=== PATIENT | female | born 1985 | race Caucasian/White ===

== ENCOUNTER 2017-08-18 11:12 | Emergency (ER) | payer OTHER ==
[2017-08-18 12:39] LABS: #Basophils 0.1 thou/uL (0.0-0.2); #Eosinphils 0.2 thou/uL (0.0-0.7); #Lymphocytes 2.4 thou/uL (1.20-3.40); #Monocytes 0.6 thou/uL (0.11-0.59); #Neutrophils 5.4 thou/uL (1.40-6.50); %Basophils 1.3 % (0.0-1.0); %Eosinophils 1.7 % (0.0-10.0); %Lymphocytes 28.1 % (21.0-51.0); %Monocytes 6.6 % (0.0-10.0); %Neutrophils 62.3 % (42.0-75.0); Hemoglobin 13.5 g/dL (12.0-16.0); Mean Corpuscular HGB CONC 33.8 g/dL (32.0-36.0); Mean Corpuscular Hemoglobin 29.6 pg (27.0-31.0); Mean Corpuscular Volume 87.6 fl (81.0-99.0); Mean Platelet Volume 6.9 fL (7.4-10.4); Platelet Count 312 thou/uL (130-400); RBC Distribution Width 12.2 % (11.5-14.5); Red Blood Cell (RBC) Count 4.57 mill/uL (4.20-5.40); White Blood Cell (WBC) Count 8.7 thou/uL (4.8-10.8)
[2017-08-18 12:59] LABS: ALT (SGPT) 13 U/L (8-55); AST (SGOT) 14 U/L (5-34); Albumin 4.2 g/dL (3.5-5.0); Alkaline Phosphatase 70 U/L (40-150); Anion Gap 11 mmol/L (10-20); BUN (Urea Nitrogen) 9 mg/dL (7.0-18.7); Bilirubin, Total 0.7 mg/dL (0.2-1.2); Calc. Creatinine Clearance 0 mL/min (70-130); Carbon Dioxide 27 mmol/L (22-29); Chloride 104 mmol/L (98-107); Estimated GFR-MDRD Greater than 90; Globulin 3.4 g/dL (2.4-3.5); Glucose 74 mg/dL (70-105); Potassium 3.9 mmol/L (3.5-5.1); Protein, Total 7.6 g/dL (6.0-8.3); Sodium 138 mmol/L (136-145)
[2017-08-18 14:40] LABS: Bilirubin Negative (Negative); Blood, Urine Negative (Negative); Clarity TURBID (Clear); Glucose, Urine (Dipstick) Negative (Negative); Leukocyte Negative (Negative); Nitrite Negative (Negative); Protein, Urine (Dipstick) Negative (Neg-Trace); Specific Gravity, Urine 1.024 (1.002-1.036); Urobilinogen 0.2 mg/dL (0.2-1.0)
[2017-08-18 14:42] LABS: Pregnancy Test - Urine (BHCG) Negative (Negative); Pregu Control Background? CLEAR/WHITE (CLR/WHITE); Pregu Control Bar Appear? YES (CONTROL BAR); Specific Gravity 1.024 (1.002-1.036)
--- NOTE | 2017-08-18 15:09 | CT ---
CT OF BRAIN PERFORMED WITHOUT CONTRAST ENHANCEMENT: History: Head injury. Recent fall. Comparison: 02-13-17 FINDINGS: The ventricular and cisternal system is within normal limits. There are no signs of intracerebral hem orrhage or extraaxial fluid collections. The mastoid air cells and visualized sinuses are clear. IMPRESSION: No acute intracranial abnormalities. POS: [facility]
== END 2017-08-18 16:56 | disposition home or self-care (01) ==
LOC: ERS 11:12
DX: R53.1 Weakness (principal); D64.9 Anemia, unspecified; F32.9 Major depressive disorder, single episode, unspecified; Z79.899 Other long term (current) drug therapy
CPT/HCPCS: 36415; 70450; 80053; 81003; 81025; 85025; 85652; 86140

== ENCOUNTER 2017-10-15 16:00 | Outpatient (CLI) | payer OTHER | END 2017-10-15 16:01 | disposition home or self-care (01) | LOC: SLEEPLAB 16:00 | PROVIDERS: ATTEND Family Medicine | DX: G47.33 Obstructive sleep apnea (adult) (pediatric) (principal); E66.9 Obesity, unspecified; F41.9 Anxiety disorder, unspecified | CPT/HCPCS: 95806 ==

== ENCOUNTER 2019-02-20 11:32 | Emergency (ER) | payer OTHER ==
[2019-02-20 12:49] LABS: #Eosinphils 0.1 thou/uL (0.0-0.7); #Lymphocytes 1.7 thou/uL (1.20-3.40); #Monocytes 0.4 thou/uL (0.11-0.59); #Neutrophils 4.4 thou/uL (1.40-6.50); %Basophils 0.1 % (0.0-1.0); %Eosinophils 0.8 % (0.0-10.0); %Lymphocytes 26.3 % (21.0-51.0); %Neutrophils 66.8 % (42.0-75.0); Hemoglobin 12.5 g/dL (12.0-16.0); Mean Corpuscular Hemoglobin 28.8 pg (27.0-31.0); Mean Corpuscular Volume 84.7 fL (78.0-98.0); Platelet Count 298 thou/uL (130-400); RBC Distribution Width 12.9 % (11.5-14.5); Red Blood Cell (RBC) Count 4.33 mill/uL (4.20-5.40); White Blood Cell (WBC) Count 6.6 thou/uL (4.8-10.8)
[2019-02-20 13:09] LABS: ALT (SGPT) 41 U/L (8-55); AST (SGOT) 30 U/L (5-34); Albumin 4.1 g/dL (3.5-5.0); Alkaline Phosphatase 64 U/L (40-150); Anion Gap 12 mmol/L (10-20); BUN (Urea Nitrogen) 10 mg/dL (7.0-18.7); Bilirubin, Total 0.7 mg/dL (0.2-1.2); Calc. Creatinine Clearance 0 mL/min (70-130); Calcium 9.3 mg/dL (7.8-10.44); Carbon Dioxide 26 mmol/L (22-29); Chloride 104 mmol/L (98-107); Estimated GFR-MDRD 86; Globulin 3.3 g/dL (2.4-3.5); Glucose 79 mg/dL (70-105); Potassium 3.8 mmol/L (3.5-5.1); Protein, Total 7.4 g/dL (6.0-8.3); Sodium 138 mmol/L (136-145)
[2019-02-20 13:12] LABS: BHCG - Serum Negative (NEGATIVE); Pregs Control Background? CLEAR/WHITE (CLR/WHITE); Pregs Control Bar Appear? YES (CONTROL BAR)
[2019-02-20 15:11] LABS: Bacteria/HPF 4+ HPF (None Seen); Bilirubin Negative (Negative); Clarity Turbid (Clear); Glucose, Urine (Dipstick) Normal (Negative); Leukocyte Negative Leu/uL (Negative); Nitrite Negative (Negative); Protein, Urine (Dipstick) 50 mg/dL (Neg-Trace); Urobilinogen Normal mg/dL (Less than 2)
[2019-02-20 15:13] LABS: Blood, Urine Trace (Negative)
[2019-02-20] MEDS ORDERED: Ibuprofen 200 MG TAB ONE (15:48)
== END 2019-02-20 16:15 | disposition home or self-care (01) ==
LOC: ERS 11:32
DX: E86.0 Dehydration (principal); F32.9 Major depressive disorder, single episode, unspecified
CPT/HCPCS: 36415; 36416; 80053; 81003; 81015; 84703; 85025; 96360

== ENCOUNTER 2019-03-02 20:29 | Emergency (ER) | payer OTHER ==
[2019-03-02 20:58] LABS: #Lymphocytes 1.4 thou/uL (1.20-3.40); #Monocytes 0.3 thou/uL (0.11-0.59); #Neutrophils 5.1 thou/uL (1.40-6.50); %Basophils 0.4 % (0.0-1.0); %Eosinophils 0.6 % (0.0-10.0); %Lymphocytes 20.3 % (21.0-51.0); %Monocytes 4.9 % (0.0-10.0); %Neutrophils 73.8 % (42.0-75.0); Hemoglobin 12.5 g/dL (12.0-16.0); Mean Corpuscular HGB CONC 33.1 g/dL (32.0-36.0); Mean Corpuscular Volume 84.4 fL (78.0-98.0); Mean Platelet Volume 6.8 fL (7.4-10.4); Platelet Count 315 thou/uL (130-400); RBC Distribution Width 13.5 % (11.5-14.5); Red Blood Cell (RBC) Count 4.48 mill/uL (4.20-5.40); White Blood Cell (WBC) Count 6.9 thou/uL (4.8-10.8)
--- NOTE | 2019-03-02 21:11 | RAD ---
EXAM: Portable chest PROVIDED CLINICAL HISTORY: Chest pain COMPARISON: None FINDINGS: Cardiac and mediastinal silhouette is within normal limits. No focal consolidation, pleural fluid or pneumothorax evident. IMPRESSION: No evidence for an acute cardiopulmonary process.
[2019-03-02 21:15] LABS: ALT (SGPT) 179 U/L (8-55); AST (SGOT) 250 U/L (5-34); Albumin 4.1 g/dL (3.5-5.0); Alkaline Phosphatase 121 U/L (40-150); Anion Gap 14 mmol/L (10-20); BUN (Urea Nitrogen) 12 mg/dL (7.0-18.7); Bilirubin, Total 0.6 mg/dL (0.2-1.2); CK (CPK) 41 U/L (29-168); Calc. Creatinine Clearance 0 mL/min (70-130); Calcium 9.6 mg/dL (7.8-10.44); Carbon Dioxide 24 mmol/L (22-29); Chloride 105 mmol/L (98-107); Estimated GFR-MDRD Greater than 90; Globulin 3.6 g/dL (2.4-3.5); Glucose 95 mg/dL (70-105); Lipase 62 U/L (8-78); Potassium 3.6 mmol/L (3.5-5.1); Protein, Total 7.7 g/dL (6.0-8.3); Sodium 139 mmol/L (136-145)
[2019-03-02] MEDS ORDERED: Lidocaine Viscous Sol 2% 15 ml UD Cup ONE (21:23)
[2019-03-02] MEDS ORDERED: Mag-Al Plus 1200 MG/1200 MG/120 MG/30 ML UDCUP ONE (21:23)
[2019-03-02] MEDS ORDERED: Metoclopramide HCl 10 MG/2 ML VIAL ONE (21:23)
[2019-03-02] MEDS ORDERED: diphenhydrAMINE 50 MG/ML VIAL ONE (21:23)
== END 2019-03-02 22:50 | disposition home or self-care (01) ==
LOC: SCSER 20:29
DX: K21.9 Gastro-esophageal reflux disease without esophagitis (principal); R07.9 Chest pain, unspecified; R51 Headache; F32.9 Major depressive disorder, single episode, unspecified; Z79.899 Other long term (current) drug therapy
CPT/HCPCS: 71045; 80053; 82550; 83690; 84484; 85025; 93005; 96365; 96375; J1200; J2765

== ENCOUNTER 2019-03-18 12:21 | Outpatient (CLI) | payer OTHER ==
--- NOTE | 2019-03-18 14:35 | RAD ---
XR Barium Swallow Esophagus History: Dysphagia, R 13.10 Comparison: None. Findings: Patient was brought to the fluoroscopy suite. All questions were answered. Patient was initially given gas-forming crystals and then thick liquid barium. Patient tolerated this well. Primary and secondary peristalsis was normal. No extensive mass effect, diverticula, or stricture. Next the patient was giving a 13 mm barium tablet which passed with ease. Patient was then put in the [place] position and given thin liquid barium to continuously drink. Again pr imary and secondary peristalsis was normal. No reflux. No hiatal hernia. Impression: Normal esophagram. Fluoroscopy time: 1 minute
== END 2019-03-18 12:22 | disposition home or self-care (01) ==
LOC: RAD 12:21
PROVIDERS: ATTEND Specialist
DX: R13.10 Dysphagia, unspecified (principal)
CPT/HCPCS: 74220

== ENCOUNTER 2019-06-13 17:45 | Emergency (ER) | payer OTHER ==
[2019-06-13] MEDS ORDERED: Ondansetron ODT 4 MG TAB ONE (18:07)
[2019-06-13] MEDS ORDERED: Mag-Al Plus 1200 MG/1200 MG/120 MG/30 ML UDCUP ONE (18:07)
[2019-06-13] MEDS ORDERED: Lidocaine Viscous Sol 2% 15 ml UD Cup ONE (18:07)
[2019-06-13 18:53] LABS: Bilirubin Small (Negative); Blood, Urine Negative (Negative); Clarity Cloudy (Clear); Glucose, Urine (Dipstick) Negative (Negative); Leukocyte Negative (Negative); Nitrite Negative (Negative); Pregnancy Test - Urine (BHCG) Negative (Negative); Pregu Control Background? CLEAR/WHITE (CLR/WHITE); Pregu Control Bar Appear? YES (CONTROL BAR); Protein, Urine (Dipstick) Negative (Neg-Trace); Specific Gravity 1.025 (1.002-1.036); Urobilinogen 0.2 mg/dL (Less than 2)
== END 2019-06-13 19:27 | disposition home or self-care (01) ==
LOC: SCSER 17:45
DX: R10.13 Epigastric pain (principal); R10.811 Right upper quadrant abdominal tenderness; R10.816 Epigastric abdominal tenderness; D64.9 Anemia, unspecified; F32.9 Major depressive disorder, single episode, unspecified
CPT/HCPCS: 36415; 36416; 80053; 80074; 81003; 81025; 82150; 83690; 85025; 93975; 99284; Q0162

== ENCOUNTER 2019-07-13 06:50 | Emergency (ER) | payer OTHER ==
[2019-07-13 07:14] LABS: #Basophils 0.1 thou/uL (0.0-0.2); #Eosinphils 0.1 thou/uL (0.0-0.7); #Lymphocytes 1.8 thou/uL (1.20-3.40); #Monocytes 0.3 thou/uL (0.11-0.59); #Neutrophils 7.7 thou/uL (1.40-6.50); %Eosinophils 0.7 % (0.0-10.0); %Monocytes 3.3 % (0.0-10.0); %Neutrophils 77.1 % (42.0-75.0); Hemoglobin 13.2 g/dL (12.0-16.0); Mean Corpuscular Hemoglobin 29.2 pg (27.0-31.0); Mean Corpuscular Volume 83.5 fL (78.0-98.0); Mean Platelet Volume 7.4 fL (7.4-10.4); Platelet Count 380 thou/uL (130-400); RBC Distribution Width 12.4 % (11.5-14.5); Red Blood Cell (RBC) Count 4.52 mill/uL (4.20-5.40)
[2019-07-13 07:37] LABS: ALT (SGPT) 47 U/L (8-55); AST (SGOT) 32 U/L (5-34); Alkaline Phosphatase 85 U/L (40-110); Anion Gap 14 mmol/L (10-20); BUN (Urea Nitrogen) 9 mg/dL (7.0-18.7); Bilirubin, Total 0.5 mg/dL (0.2-1.2); Calc. Creatinine Clearance 0 mL/min (70-130); Calcium 9.5 mg/dL (7.8-10.44); Carbon Dioxide 22 mmol/L (22-29); Chloride 104 mmol/L (98-107); Estimated GFR-MDRD 90; Globulin 3.7 g/dL (2.4-3.5); Glucose 83 mg/dL (70-105); Lipase 40 U/L (8-78); Potassium 4.1 mmol/L (3.5-5.1); Protein, Total 7.7 g/dL (6.0-8.3); Sodium 136 mmol/L (136-145)
[2019-07-13 07:45] LABS: Bilirubin Negative (Negative); Blood, Urine Negative (Negative); Clarity Clear (Clear); Glucose, Urine (Dipstick) Normal (Negative); Leukocyte Negative Leu/uL (Negative); Nitrite Negative (Negative); Protein, Urine (Dipstick) 10 mg/dL (Neg-Trace); Urobilinogen Normal mg/dL (Less than 2)
[2019-07-13 07:52] LABS: Pregnancy Test - Urine (BHCG) Negative (Negative); Pregu Control Background? CLEAR/WHITE (CLR/WHITE); Pregu Control Bar Appear? YES (CONTROL BAR); Specific Gravity 1.025 (1.002-1.036)
[2019-07-13] MEDS ORDERED: Ketorolac Tromethamine 30 MG/ML VIAL ONE (08:20)
--- NOTE | 2019-07-13 08:27 | CT ---
CT Abdomen Pelvis W Con: 07/13/2019 7:48 AM CLINICAL INFORMATION: Left lower quadrant abdominal pain and pelvic pain COMPARISON: 09/25/2016 TECHNIQUE: Multiple contiguous axial images were obtained and a CT of the abdomen and pelvis with IV contrast. C oronal and sagittal reformats were performed. FINDINGS: Lower Chest: within normal limits. Abdomen: Liver: within normal limits. Bile Ducts: Normal caliber. Gallbladder: No calcified gallstones. Normal caliber wall. Pancreas: within normal limits. Spleen: within normal limits. Adrenals: within normal limits. Kidneys: within normal limits. Pelvis: Reproductive Organs: A 3.9 cm hypodensity in the right adnexa likely represents a cyst/follicle. Ureters: within normal limits. Bladder: within normal limits. Peritoneum: No ascites or free air, no fluid collection. Bowel: Normal caliber. Normal appendix. Mesentery and Retroperitoneum: No enlarged mesenteric or retroperitoneal lymph nodes. Vessels: Normal. Abdominal Wall: within normal limits. Bones: Within normal limits IMPRESSION: No evidence of acute intraabdominal or pelvic abnormality.
== END 2019-07-13 09:24 | disposition home or self-care (01) ==
LOC: ERS 06:50
DX: N83.201 Unspecified ovarian cyst, right side (principal); F32.9 Major depressive disorder, single episode, unspecified; Z79.899 Other long term (current) drug therapy
CPT/HCPCS: 74177; 80053; 81003; 81025; 83690; 85025; 96374; J1885

== ENCOUNTER 2019-07-22 13:37 | Observation (INO) | payer OTHER ==
[~2019-07-22 13:37] MED LIST: Iopamidol-370 76% 500 ML 1 ML ONE
[2019-07-22] MEDS ORDERED: Morphine 4 MG/ML VIAL ONE ×2 (14:22→16:51)
[2019-07-22] MEDS ORDERED: Ondansetron PF 4 MG/2 ML Vial ONE (14:22)
--- NOTE | 2019-07-22 14:28 | RAD ---
EXAM: Single view of the chest HISTORY: Sepsis COMPARISON: 03/02/2019 FINDINGS: Single view of the chest shows a normal sized cardiomediastinal silhouette. There is no montez dence of consolidation, mass, or pleural effusion. The bones are unremarkable. IMPRESSION: No evidence of acute cardiopulmonary disease
[2019-07-22 14:34] LABS: #Eosinphils 0.1 thou/uL (0.0-0.7); #Lymphocytes 1.7 thou/uL (1.20-3.40); #Monocytes 0.5 thou/uL (0.11-0.59); #Neutrophils 8.7 thou/uL (1.40-6.50); %Basophils 0.3 % (0.0-1.0); %Eosinophils 1.3 % (0.0-10.0); %Lymphocytes 15.6 % (21.0-51.0); %Monocytes 4.3 % (0.0-10.0); %Neutrophils 78.5 % (42.0-75.0); Hemoglobin 12.6 g/dL (12.0-16.0); Mean Corpuscular HGB CONC 33.5 g/dL (32.0-36.0); Mean Corpuscular Hemoglobin 28.2 pg (27.0-31.0); Mean Corpuscular Volume 84.1 fL (78.0-98.0); Mean Platelet Volume 7.1 fL (7.4-10.4); Platelet Count 411 thou/uL (130-400); RBC Distribution Width 12.3 % (11.5-14.5); Red Blood Cell (RBC) Count 4.47 mill/uL (4.20-5.40); White Blood Cell (WBC) Count 11.1 thou/uL (4.8-10.8)
[2019-07-22 14:54] LABS: ALT (SGPT) 17 U/L (8-55); AST (SGOT) 12 U/L (5-34); Alkaline Phosphatase 78 U/L (40-110); Anion Gap 13 mmol/L (10-20); BUN (Urea Nitrogen) 12 mg/dL (7.0-18.7); Bilirubin, Total 0.3 mg/dL (0.2-1.2); Calc. Creatinine Clearance 0 mL/min (70-130); Calcium 9.6 mg/dL (7.8-10.44); Carbon Dioxide 25 mmol/L (22-29); Chloride 104 mmol/L (98-107); Estimated GFR-MDRD 81; Globulin 3.7 g/dL (2.4-3.5); Glucose 110 mg/dL (70-105); Potassium 3.6 mmol/L (3.5-5.1); Protein, Total 7.7 g/dL (6.0-8.3); Sodium 138 mmol/L (136-145)
--- NOTE | 2019-07-22 14:59 | CT ---
CT Abdomen Pelvis W Con: 07/22/2019 2:16 PM CLINICAL INFORMATION: Left lower quadrant abdominal pain that began 2 days ago COMPARISON: 07/13/2019 TECHNIQUE: Multiple contiguous axial images were obtained and a CT of the abdomen and pelvis with IV contrast. C oronal and sagittal reformats were performed. FINDINGS: Lower Chest: within normal limits. Abdomen: Liver: within normal limits. Bile Ducts: Normal caliber. Gallbladder: No calcified gallstones. Normal caliber wall. Pancreas: within normal limits. Spleen: within normal limits. Adrenals: within normal limits. Kidneys: within normal limits. Pelvis: Reproductive Organs: No pelvic masses. The previously seen right ovarian follicle has resolved. Ureters: within normal limits. Bladder: within normal limits. Peritoneum: No ascites or free air, no fluid collection. Bowel: Normal caliber. Mesentery and Retroperitoneum: No enlarged mesenteric or retroperitoneal lymph nodes. Vessels: Normal. Abdominal Wall: within normal limits. Bones: Within normal limits IMPRESSION: No evidence of acute intraabdominal or pelvic abnormality.
[2019-07-22 15:58] LABS: Bilirubin Negative (Negative); Blood, Urine Trace (Negative); Clarity Clear (Clear); Glucose, Urine (Dipstick) Normal (Negative); Leukocyte Negative Leu/uL (Negative); Nitrite Negative (Negative); Protein, Urine (Dipstick) Negative (Neg-Trace); Urobilinogen Normal mg/dL (Less than 2); WBC/HPF 0-3 HPF (0-3)
[2019-07-22 16:01] LABS: Bacteria/HPF 1+ HPF (None Seen)
--- NOTE | 2019-07-22 17:19 | ULT ---
Pelvic sonogram transabdominal and transvaginal imaging HISTORY: Pelvic pain. FINDINGS: Urinary bladder is unremarkable. Uterus measures up to 11.4 cm with a heterogeneous echotex ture. The hyperechoic fibroid seen on recent CT is not well demonstrated on this exam. Endometrium not well delineated. No free fluid. Right ovary is surgically absent. Left ovary not visualized with transabdominal or tra nsvaginal imaging. IMPRESSION: While the uterus is prominent and heterogeneous, well-defined fibroids/masses are not del ineated. No significant abnormalities are demonstrated.
[2019-07-22 17:48] LABS: Lactic Acid 1.2 mmol/L (0.5-2.2)
[2019-07-22] MEDS ORDERED: Lorazepam 2 MG/ML VIAL ONE (18:02)
[2019-07-22] MEDS ORDERED: Piperacillin/Tazobactam 4.5 GM VIAL ONE (18:02)
[2019-07-22] MEDS ORDERED: Ketorolac Tromethamine 30 MG/ML VIAL ONE (18:02)
[2019-07-22] MEDS ORDERED: Sodium Chloride 0.9% 100 ML ONE (18:04)
--- NOTE | 2019-07-22 18:59 | PDOC.FPRHP ---
- History of Present Illness Chief Complaint: abd pain History of Present Illness: 33 y/o F PMHx PCOS, Guillain Elsberry, R ovarian torsion who is POD#5 s/p R oophorectomy and salpingectomy due to ovarian torsion presents with LLQ pain. She reports having diarrhea that started on Thursday and then later that day developed severe abd pain. It is sharp, shooting pain that is worse with any movement. Denies fever, chills, N/V. ED Course: Pt was given morphine, Zofran, 1L NS, Vanc, Zosyn, Toradol, Lorazepam - Allergies/Adverse Reactions Allergies Allergy/AdvReac Type Severity Reaction Status Date / Time codeine Allergy Verified 07/22/19 18:59 hydrocodone Allergy Verified 07/22/19 18:59 - History PMHx: PCOS, Guillain Elsberry, Anxiety, Depression PSHx: R salpingectomy/oophorectomy for ovarian torsion, 2 sections FHx: Grandmother - ovarian cancer, Mother - PCOS Social: Denies tobacco, EtOH, or drug use - Review of Systems General: denies: fever/chills, weight/appetite/sleep changes Eyes: denies: eye pain, vision changes ENT: denies: nasal congestion, rhinorrhea Respiratory: denies: cough, shortness of breath Cardiovascular: denies: chest pain, edema Gastrointestinal: reports: diarrhea, abdominal pain. denies: nausea, vomiting Genitourinary: denies: dysuria, polyuria Skin: denies: rashes, lesions Musculoskeletal: denies: pain, swelling Neurological: denies: numbness, weakness Psychological: reports: anxiety, depression - Vital signs BP: 142/85, MAP: 104, Pulse: 101, Resp: 18, Temp: 98 (Oral), Pain: 5, O2 sat: 98 on (Room Air) - Physical Exam Constitutional: NAD, awake, alert and oriented, well developed HEENT: normocephalic and atraumatic, EOMI, conjunctiva clear, grossly normal vision, grossly normal hearing, MMM Neck: FROM, no LAD Heart: RRR, normal S1/S2, pulses present Lungs: CTAB, no respiratory distress Abdomen: soft, other (TTP worse in LLQ, no guarding or rebound) Skin: good turgor, capillary refill <2 seconds Heme/Lymphatic: no unusual bruising or bleeding, no purpura, other (surgical laparoscopy sites c/d/i with steri strips in place) Psychiatric: other (tearful, anxious affect) FMR H&P: Results - Labs Result Diagrams: 07/22/19 14:15 07/22/19 14:16 Lab results: WBC 11.1 thou/uL (4.8-10.8) H 07/22/19 14:15 Hgb 12.6 g/dL (12.0-16.0) 07/22/19 14:15 Hct 37.6 % (36.0-47.0) 07/22/19 14:15 MCV 84.1 fL (78.0-98.0) 07/22/19 14:15 Plt Count 411 thou/uL (130-400) H 07/22/19 14:15 Neutrophils % 78.5 % (42.0-75.0) H 07/22/19 14:15 Sodium 138 mmol/L (136-145) 07/22/19 14:16 Potassium 3.6 mmol/L (3.5-5.1) 07/22/19 14:16 Chloride 104 mmol/L (98-107) 07/22/19 14:16 Carbon Dioxide 25 mmol/L (22-29) 07/22/19 14:16 BUN 12 mg/dL (7.0-18.7) 07/22/19 14:16 Creatinine 0.82 mg/dL (0.6-1.1) 07/22/19 14:16 Glucose 110 mg/dL (70-105) H 07/22/19 14:16 Lactic Acid 1.2 mmol/L (0.5-2.2) 07/22/19 17:21 Calcium 9.6 mg/dL (7.8-10.44) 07/22/19 14:16 Total Bilirubin 0.3 mg/dL (0.2-1.2) 07/22/19 14:16 AST 12 U/L (5-34) 07/22/19 14:16 ALT 17 U/L (8-55) 07/22/19 14:16 Alkaline Phosphatase 78 U/L (40-110) 07/22/19 14:16 Serum Total Protein 7.7 g/dL (6.0-8.3) 07/22/19 14:16 Albumin 4.0 g/dL (3.5-5.0) 07/22/19 14:16 Urine Ketones Negative mg/dL (Negative) 07/22/19 15:31 Urine Blood Trace (Negative) A 07/22/19 15:31 Urine Nitrite Negative (Negative) 07/22/19 15:31 Ur Leukocyte Esterase Negative Litzy/uL (Negative) 07/22/19 15:31 Urine RBC 7-10 HPF (0-3) A 07/22/19 15:31 Urine WBC 0-3 HPF (0-3) 07/22/19 15:31 Ur Squamous Epith Cells 11-20 HPF (0-3) A 07/22/19 15:31 Urine Bacteria 1+ HPF (None Seen) A 07/22/19 15:31 - Radiology Interpretation CT scan - abdomen Status: report reviewed by me Additional comment: No acute process noted Chest x-ray Status: report reviewed by me Additional comment: No acute cardiopulmonary abnormality US - abdomen Status: report reviewed by me Additional comment: Uterus 11.4cm and heterogenous, ovaries not seen FMR H&P: A/P - Problem List (1) S/P removal of right ovary Current Visit: Yes Status: Acute Code(s): Z90.721 - ACQUIRED ABSENCE OF OVARIES, UNILATERAL Assessment and Plan: Pt POD#5 s/p R oophorectomy and salpingectomy for ovarian torsion -incision c/d/i -No sign of fluid collection, abscess -Pain control with morphine and toradol (2) Abdominal pain Current Visit: Yes Status: Acute Code(s): R10.9 - UNSPECIFIED ABDOMINAL PAIN Qualifiers: Abdominal location: left lower quadrant Qualified Code(s): R10.32 - Left lower quadrant pain Assessment and Plan: Concerning for a post-op infection with mild leukocytosis potentially from uterine manipulation -Will treat with gent and clinda -IVF -Pain control with morphine and toradol (3) Leukocytosis Current Visit: Yes Status: Acute Code(s): D72.829 - ELEVATED WHITE BLOOD CELL COUNT, UNSPECIFIED Assessment and Plan: Will monitor -Abx and fluids as above - Plan Disposition/LOS: Obs on antisqueak applier unit LOS likely less than 48 hours FMR H&P: Upper Level - Plan Date/Time: 07/22/191856 I, [], have evaluated this patient and agree with findings/plan as outlined by editing internship resident. Pertinent changes/additions are listed here. Addendum - Attending - Attending Attestation Date/Time: 07/22/192109 I personally evaluated the patient and discussed the management with Dr. Oro. 33 yo WF now POD#5 from SO for adnexal torsion in [place], seen by Dr. Kramer at [facility] today c/o diffuse abdominal pain. CT and USG are nonfocal, WBC= 11+. Pt has required multiple doses of pain medication in ER and requires OBS. Will tx. for pain and start Gent/Clinda for possible postop pelvic infection. Discussed with Dr. Kramer who agrees with this plan. I agree with the History, Examination, Assessment and Plan documented above.
[2019-07-22] MEDS ORDERED: Ondansetron ODT 4 MG TAB PO PRN (19:42)
[2019-07-22] MEDS ORDERED: Ondansetron PF 4 MG/2 ML Vial IVP PRN (19:42)
[2019-07-22] MEDS: Lactated Ringer's 1,000 ML IV SCH (20:12)
[2019-07-22 20:27] VITALS: BMI 39.1
[2019-07-22] MEDS: Morphine 4 MG/ML VIAL SLOW IVP PRN (21:13)
[2019-07-22] MEDS: GENTAMICIN SULFATE IVPB SCH (21:13)
[2019-07-22] MEDS: ADMIXTURE FEE IVPB SCH (21:13)
[2019-07-22] MEDS: SODIUM CHLORIDE IVPB SCH (21:13)
[2019-07-22] MEDS: Famotidine 20 MG TAB PO SCH (21:14)
[2019-07-22] MEDS: Clindamycin/D5W 900 MG in Premix Bag 1 BAG IVPB SCH (22:35)
[2019-07-23] MEDS: Morphine 4 MG/ML VIAL SLOW IVP PRN ×4 (01:49→17:19)
[2019-07-23 05:55] LABS: Anion Gap 12 mmol/L (10-20); BUN (Urea Nitrogen) 9 mg/dL (7.0-18.7); Calc. Creatinine Clearance 202 mL/min (70-130); Calcium 8.4 mg/dL (7.8-10.44); Carbon Dioxide 24 mmol/L (22-29); Chloride 105 mmol/L (98-107); Estimated GFR-MDRD Greater than 90; Glucose 93 mg/dL (70-105); Potassium 3.7 mmol/L (3.5-5.1); Sodium 137 mmol/L (136-145)
[2019-07-23] MEDS: Clindamycin/D5W 900 MG in Premix Bag 1 BAG IVPB SCH ×3 (05:58→22:23)
[2019-07-23] MEDS: Lactated Ringer's 1,000 ML IV SCH ×3 (06:07→14:05)
--- NOTE | 2019-07-23 06:21 | PDOC.EVN ---
Event Note - Event Note Event Note: Louise/Clinda#1 Feeling some better this AM but continues to ask for MS. VSS AF Abdomen is soft, less tender. Nondistended. Plan: Cont. IV ABX, try to switch to PO pain meds today.
[2019-07-23 06:26] LABS: #Eosinphils 0.2 thou/uL (0.0-0.7); #Lymphocytes 1.9 thou/uL (1.20-3.40); #Monocytes 0.5 thou/uL (0.11-0.59); #Neutrophils 5.2 thou/uL (1.40-6.50); %Basophils 0.6 % (0.0-1.0); %Eosinophils 2.2 % (0.0-10.0); %Lymphocytes 23.8 % (21.0-51.0); %Monocytes 6.6 % (0.0-10.0); %Neutrophils 66.9 % (42.0-75.0); Hemoglobin 10.7 g/dL (12.0-16.0); Mean Corpuscular HGB CONC 33.9 g/dL (32.0-36.0); Mean Corpuscular Hemoglobin 28.7 pg (27.0-31.0); Mean Corpuscular Volume 84.7 fL (78.0-98.0); Platelet Count 287 thou/uL (130-400); RBC Distribution Width 12.2 % (11.5-14.5); Red Blood Cell (RBC) Count 3.74 mill/uL (4.20-5.40); White Blood Cell (WBC) Count 7.8 thou/uL (4.8-10.8)
[2019-07-23] MEDS: Famotidine 20 MG TAB PO SCH ×2 (07:46→21:17)
[2019-07-23] MEDS: Ketorolac Tromethamine 30 MG/ML VIAL IVP PRN ×2 (07:48→13:31)
[2019-07-23] MEDS: Enoxaparin Sodium 40 MG/0.4 ML SYRINGE SC SCH (07:52)
[2019-07-23] MEDS: traMADol HCl 50 MG TAB PO PRN ×2 (08:02→13:33)
[2019-07-23] MEDS: Bupropion 150 MG XL TAB PO SCH (09:07)
[2019-07-23] MEDS: Multivit, Chewable SF 1 TAB PO SCH (09:17)
[2019-07-23] MEDS ORDERED: Acetaminophen 500 MG TAB PO SCH (17:15)
[2019-07-23] MEDS ORDERED: FLUoxetine HCl 20 MG CAP PO SCH (21:00)
[2019-07-23] MEDS: SODIUM CHLORIDE IVPB SCH (21:17)
[2019-07-23] MEDS: Ibuprofen 800 MG TAB PO PRN (21:17)
[2019-07-23] MEDS: ADMIXTURE FEE IVPB SCH (21:17)
[2019-07-23] MEDS: GENTAMICIN SULFATE IVPB SCH (21:17)
[2019-07-24] MEDS: Lactated Ringer's 1,000 ML IV SCH ×2 (00:51→07:48)
[2019-07-24] MEDS: Morphine 4 MG/ML VIAL SLOW IVP PRN (03:13)
[2019-07-24 04:42] LABS: #Eosinphils 0.1 thou/uL (0.0-0.7); #Lymphocytes 1.8 thou/uL (1.20-3.40); #Monocytes 0.4 thou/uL (0.11-0.59); #Neutrophils 3.1 thou/uL (1.40-6.50); %Basophils 0.5 % (0.0-1.0); %Eosinophils 2.7 % (0.0-10.0); %Lymphocytes 32.9 % (21.0-51.0); %Monocytes 7.1 % (0.0-10.0); %Neutrophils 56.8 % (42.0-75.0); Hemoglobin 10.8 g/dL (12.0-16.0); Mean Corpuscular HGB CONC 33.5 g/dL (32.0-36.0); Mean Corpuscular Hemoglobin 28.3 pg (27.0-31.0); Mean Corpuscular Volume 84.5 fL (78.0-98.0); Platelet Count 285 thou/uL (130-400); RBC Distribution Width 12.2 % (11.5-14.5); Red Blood Cell (RBC) Count 3.82 mill/uL (4.20-5.40); White Blood Cell (WBC) Count 5.4 thou/uL (4.8-10.8)
[2019-07-24] MEDS: Ibuprofen 800 MG TAB PO PRN (05:35)
[2019-07-24] MEDS: Clindamycin/D5W 900 MG in Premix Bag 1 BAG IVPB SCH (05:35)
[2019-07-24] MEDS ORDERED: Acetaminophen 500 MG TAB PO PRN (07:06)
[2019-07-24] MEDS ORDERED: traMADol HCl 50 MG TAB PO PRN (07:06)
[2019-07-24] MEDS ORDERED: Bisacodyl 5 MG TAB PO PRN (07:07)
[2019-07-24] MEDS ORDERED: Polyethylene Glycol 3350 17 GM Packet PO SCH (07:07)
--- NOTE | 2019-07-24 07:10 | PDOC.FM ---
- Subjective Subjective: 33 yo reports pain a little better. Pt states still when gets up or moves gets sharp shooting pain in area of lower left abdomen incision. Pt reports area inverts when standing up. Pt denies any fever or chills. Denies any nausea or vomiting. Reports not having BM since Thursday AM. Pt denies any chest pain or SOB. Denies any numbness or tingling. Denies any muscle aches or cramps. Pt states pain stable when laying down. No other acute events overnight. - Objective MAR Reviewed: Yes Vital Signs & Weight: Vital Signs (12 hours) Temp Pulse Resp BP Pulse Ox 07/24/19 04:35 97.8 F 84 18 121/59 L 98 07/24/19 00:00 98.2 F 80 18 114/67 98 07/23/19 19:30 98.1 F 82 18 130/76 96 Weight Weight 103.447 kg I&O: 07/23/19 07/24/19 07/25/19 06:59 06:59 06:59 Intake Total 1227 2172 Balance 1227 2172 Result Diagrams: 07/24/19 04:09 07/23/19 05:22 Radiology Reviewed by me: Yes (No acute abnormalities noted) Phys Exam - Physical Examination Constitutional: NAD HEENT: PERRLA, moist MMs, sclera anicteric, oral pharynx no lesions Neck: no nodes, no JVD, supple Respiratory: no wheezing, no rales, no rhonchi, clear to auscultation bilateral Cardiovascular: RRR, no significant murmur, no rub Gastrointestinal: soft (No CVA tenderness noted), no distention, positive bowel sounds Pt tender to light palpation in area of lower left abdomen inicison No redness, heat, swelling or drainage noted. No underlying mass Musculoskeletal: no edema, pulses present Neurological: non-focal, normal sensation, moves all 4 limbs Lymphatic: no nodes Psychiatric: normal affect, A&O x 3 Skin: no rash, normal turgor, cap refill <2 seconds Dx/Plan (1) Abdominal pain Code(s): R10.9 - UNSPECIFIED ABDOMINAL PAIN Status: Acute Qualifiers: Abdominal location: left lower quadrant Qualified Code(s): R10.32 - Left lower quadrant pain (2) Anxiety Code(s): F41.9 - ANXIETY DISORDER, UNSPECIFIED Status: Acute (3) Depression Code(s): F32.9 - MAJOR DEPRESSIVE DISORDER, SINGLE EPISODE, UNSPECIFIED Status : Acute (4) Post-op pain Code(s): G89.18 - OTHER ACUTE POSTPROCEDURAL PAIN Status: Acute (5) S/P removal of right ovary Code(s): Z90.721 - ACQUIRED ABSENCE OF OVARIES, UNILATERAL Status: Acute - Plan Plan: (1) S/P removal of right ovary Pt POD#6 s/p R oophorectomy and salpingectomy for ovarian torsion -incision c/d/i -No sign of fluid collection, abscess -Pain control with morphine and toradol -VSS. CBC normal (2) Abdominal pain -Possible concern for infection. Has been getting tx with IV gent, clinda. WBC stable last two days. No fevers noted. -Pt pain related with movement. Incision inverts when up. Possibly pain related to stitching. -Pain control with ibuprofen, morphine. Will switch to tramadol today. (3) Constipation -Miralax and dulcolax michelle (4) Leukocytosis (Resolved) -Has trended down. -Likely does not need abx outpt. Continue gent, clinda until D/C - Plan Disposition/LOS: - At this time there is no sign of infection. Pt pain was quentin controlled overnight with mainly PO medication. Required less morphine overnight. At this time suspect pain related to stitching in wound site and likely pinching skin. Discussed with pt. At this time will discharge pt home today with PO medication. Advised to rest as needed and take pain medication as scheduled. No BM since thursday. Passing gas. Will give miralax and dulcolax today prior to D/ C.
[2019-07-24 07:54] VITALS: BP 125/67; TEMP 98
[2019-07-24] MEDS: Multivit, Chewable SF 1 TAB PO SCH (09:36)
[2019-07-24] MEDS: Bupropion 150 MG XL TAB PO SCH (09:36)
[2019-07-24] MEDS: Enoxaparin Sodium 40 MG/0.4 ML SYRINGE SC SCH (09:37)
[2019-07-24] MEDS: Famotidine 20 MG TAB PO SCH (09:37)
== END 2019-07-24 10:49 | disposition home or self-care (01) ==
LOC: ERS 13:37 → 3SE 19:54
PROVIDERS: ADMIT Obstetrics & Gynecology; ATTEND Obstetrics & Gynecology
DX: R10.32 Left lower quadrant pain (principal); G89.18 Other acute postprocedural pain; G61.0 Guillain-Barre syndrome; K59.00 Constipation, unspecified; F41.9 Anxiety disorder, unspecified; F32.9 Major depressive disorder, single episode, unspecified; D72.829 Elevated white blood cell count, unspecified; Z79.899 Other long term (current) drug therapy; Z88.5 Allergy status to narcotic agent; Z90.721 Acquired absence of ovaries, unilateral
CPT/HCPCS: 36415; 71045; 74177; 76856; 80048; 80053; 80170; 81003; 81015; 83605; 85025; 87040; 87086; 93005; 94760; 96361; 96365; 96367; 96372; 96374; 96375; 96376; G0378; J1580; J1650; J1885; J2060; J2270; J2405; J2543; J3370; J3490; Q9967

== ENCOUNTER 2019-09-21 10:16 | Outpatient (CLI) | payer OTHER ==
--- NOTE | 2019-09-21 14:01 | NM ---
HEPATOBILIARY SCAN: HISTORY:Right upper quadrant pain. No gallstones and ultrasound dated 06/13/2019 RADIOPHARMACEUTICAL: 5 mCi Technetium 99m Mebrofenin injected intravenously FINDINGS: There is normal tracer extraction by the liver with normal excretion into the biliary tracts and smal l bowel loops and normal filling of the gallbladder. The calculated gallbladder ejection fraction following an oral fatty meal measures 2%. IMPRESSION:Chronic acalculus cholecystitis/gallbladder dyskinesia
== END 2019-09-21 10:17 | disposition home or self-care (01) ==
LOC: NM 10:16
PROVIDERS: ATTEND Surgery
DX: R10.11 Right upper quadrant pain (principal); R10.13 Epigastric pain
CPT/HCPCS: 78227; A9537

== ENCOUNTER 2019-09-26 19:00 | Outpatient (CLI) | payer OTHER | END 2019-09-26 19:01 | disposition home or self-care (01) | LOC: SLEEPLAB 19:00 | PROVIDERS: ATTEND Family Medicine | DX: G47.33 Obstructive sleep apnea (adult) (pediatric) (principal); R53.83 Other fatigue; K21.9 Gastro-esophageal reflux disease without esophagitis; G31.84 Mild cognitive impairment of uncertain or unknown etiology; E66.9 Obesity, unspecified; R06.83 Snoring; G47.10 Hypersomnia, unspecified; R51 Headache; Z68.39 Body mass index [BMI] 39.0-39.9, adult | CPT/HCPCS: 95806 ==

== ENCOUNTER 2019-09-27 16:52 | Outpatient (CLI) | payer OTHER ==
[2019-09-27 17:34] LABS: #Basophils 0.1 thou/uL (0.0-0.2); #Eosinphils 0.1 thou/uL (0.0-0.7); #Lymphocytes 2.1 thou/uL (1.20-3.40); #Monocytes 0.6 thou/uL (0.11-0.59); #Neutrophils 5.9 thou/uL (1.40-6.50); %Basophils 0.6 % (0.0-1.0); %Eosinophils 1.6 % (0.0-10.0); %Lymphocytes 23.8 % (21.0-51.0); %Monocytes 6.3 % (0.0-10.0); %Neutrophils 67.7 % (42.0-75.0); Hemoglobin 11.8 g/dL (12.0-16.0); Mean Corpuscular HGB CONC 32.6 g/dL (32.0-36.0); Mean Corpuscular Hemoglobin 27.5 pg (27.0-31.0); Mean Corpuscular Volume 84.4 fL (78.0-98.0); Mean Platelet Volume 7.6 fL (7.4-10.4); Platelet Count 394 thou/uL (130-400); RBC Distribution Width 12.5 % (11.5-14.5); Red Blood Cell (RBC) Count 4.27 mill/uL (4.20-5.40); White Blood Cell (WBC) Count 8.7 thou/uL (4.8-10.8)
[2019-09-27 18:00] LABS: BHCG - Serum Negative (NEGATIVE); Pregs Control Background? CLEAR/WHITE (CLR/WHITE); Pregs Control Bar Appear? YES (CONTROL BAR)
[2019-09-27 18:02] LABS: ALT (SGPT) 17 U/L (8-55); AST (SGOT) 14 U/L (5-34); Albumin 4.2 g/dL (3.5-5.0); Alkaline Phosphatase 79 U/L (40-110); Anion Gap 15 mmol/L (10-20); BUN (Urea Nitrogen) 14 mg/dL (7.0-18.7); Bilirubin, Direct 0.2 mg/dL (0.1-0.3); Bilirubin, Total 0.5 mg/dL (0.2-1.2); Calc. Creatinine Clearance 0 mL/min (70-130); Calcium 9.7 mg/dL (7.8-10.44); Carbon Dioxide 22 mmol/L (22-29); Chloride 107 mmol/L (98-107); Estimated GFR-MDRD 76; Glucose 92 mg/dL (70-105); Potassium 3.7 mmol/L (3.5-5.1); Protein, Total 7.4 g/dL (6.0-8.3); Sodium 140 mmol/L (136-145)
== END 2019-09-27 16:53 | disposition home or self-care (01) ==
LOC: LABBT 16:52
PROVIDERS: ATTEND Surgery
DX: Z01.812 Encounter for preprocedural laboratory examination (principal); K82.8 Other specified diseases of gallbladder
CPT/HCPCS: 80048; 80076; 84703; 85025

== ENCOUNTER 2019-09-30 11:08 | Day surgery (SDC) | payer OTHER ==
[2019-09-27 16:57] VITALS: BMI 37.2
[~2019-09-30 11:08] MED LIST changes: +Dexamethasone 20 MG/5 ML VIAL ONE; +EPHEDRINE 25 MG/5 ML SYRINGE ONE; -Iopamidol-370 76% 500 ML 1 ML ONE; +Ketorolac Tromethamine 30 MG/ML VIAL ONE; +Lidocaine 1% PF 5 ML VIAL ONE; +Ondansetron PF 4 MG/2 ML Vial ONE; +PROPOFOL 200 MG/20 ML VIAL ONE; +Succinylcholine Chloride 20 MG/ML 10 ml SYRINGE FS ONE
[2019-09-30] MEDS ORDERED: diphenhydrAMINE 50 MG/ML VIAL ONE (12:11)
[2019-09-30] MEDS ORDERED: Bupivacaine 0.25% HCL 30 ML VIAL ONE (12:59)
[2019-09-30] MEDS ORDERED: Lidocaine 1% w/Epinephrine 1:100K 20 ML VIAL ONE (12:59)
[2019-09-30] MEDS ORDERED: Fentanyl 100 MCG/2 ML VIAL ONE ×4 (13:03→15:34)
[2019-09-30] MEDS ORDERED: Promethazine HCl 25 MG/ML VIAL ONE (14:36)
[2019-09-30] MEDS ORDERED: Midazolam HCl 2 mg/2 ml Vial ONE (14:53)
--- NOTE | 2019-09-30 17:50 | OP ---
DATE OF PROCEDURE: 09/30/2019 PREOPERATIVE DIAGNOSIS: Chronic cholecystitis. POSTOPERATIVE DIAGNOSIS: Chronic cholecystitis. PROCEDURE PERFORMED: Laparoscopic cholecystectomy. ANESTHESIA: General. ESTIMATED BLOOD LOSS: Minimal. COMPLICATIONS: None. SPECIMEN: Gallbladder. FINDINGS: Chronic cholecystitis. PROCEDURE IN DETAIL: The patient was taken to the operating room and laid supine on the operating room table. After general anesthetic was obtained, the abdomen was prepped and draped in a sterile fashion. A curved incision was made below the umbilicus. Cautery was used to dissect down to the umbilical fascia. Umbilical fascia was incised and held up using a Wanda. The abdominal cavity was entered using a Kyra clamp. Holding stitch of Vicryl was placed on each side of the fascia. Milan trocar was placed. High-flow pneumoperitoneum was obtained. An upper midline 5 mm port and 2 right upper quadrant 5 mm ports were placed under direct camera visualization. The gallbladder was retracted from the gallbladder fossa. The peritoneum of the gallbladder was opened anteriorly and posteriorly. The critical view triangle was seen showing only the cystic duct and cystic artery branching from medial to lateral. There were no other branching structures. Two clips were placed proximally on the cystic duct and one laterally. It was cut using laparoscopic scissors. The cystic artery was taken in the same way. Electrocautery was then used to dissect the gallbladder out of the gallbladder fossa. The gallbladder was placed in an Endo catch bag and brought out through the Milan. There was no bleeding or bile in the liver bed. The cystic duct stump and cystic artery stump were intact, without evidence of extravasation or bleeding. All port sites were infiltrated using local anesthesia. All ports were removed under camera visualization. Pneumoperitoneum was let down. The Vicryl was used to close the fascial defect below the umbilicus. All incisions were irrigated and closed using 4-0 Monocryl and Dermabond. The patient was en route to Recovery in stable condition. All instrument counts, needle counts and lap counts were correct. Job ID: [id number]
[2019-09-30] MEDS ORDERED: traMADol HCl 50 MG TAB ONE (18:47)
== END 2019-09-30 19:07 | disposition home or self-care (01) ==
LOC: SDC 11:08
PROVIDERS: ATTEND Surgery
PROC: 0FT44ZZ Resection of Gallbladder, Percutaneous Endoscopic Approach (ICD-10-PCS; principal; 2019-09-30)
DX: K81.1 Chronic cholecystitis (principal); K82.8 Other specified diseases of gallbladder; F32.9 Major depressive disorder, single episode, unspecified; F41.9 Anxiety disorder, unspecified; Z79.899 Other long term (current) drug therapy; Z88.5 Allergy status to narcotic agent
CPT/HCPCS: 88304; J0690; J1100; J1200; J1885; J2001; J2250; J2405; J2550; J2704; J3010; S0020

== ENCOUNTER 2019-10-20 17:30 | Outpatient (CLI) | payer OTHER | END 2019-10-20 17:31 | disposition home or self-care (01) | LOC: SLEEPLAB 17:30 | PROVIDERS: ATTEND Family Medicine | DX: G47.33 Obstructive sleep apnea (adult) (pediatric) (principal); R51 Headache; E66.9 Obesity, unspecified; K21.9 Gastro-esophageal reflux disease without esophagitis; R06.83 Snoring; R53.83 Other fatigue; R09.89 Other specified symptoms and signs involving the circulatory and respiratory systems; G31.84 Mild cognitive impairment of uncertain or unknown etiology | CPT/HCPCS: 95806 ==

== ENCOUNTER 2019-12-16 19:30 | Outpatient (CLI) | payer OTHER | END 2019-12-16 19:31 | disposition home or self-care (01) | LOC: SLEEPLAB 19:30 | PROVIDERS: ATTEND Family Medicine | DX: G47.33 Obstructive sleep apnea (adult) (pediatric) (principal); R53.83 Other fatigue; K21.9 Gastro-esophageal reflux disease without esophagitis; E66.9 Obesity, unspecified; R51 Headache; R06.83 Snoring; G31.84 Mild cognitive impairment of uncertain or unknown etiology; R09.89 Other specified symptoms and signs involving the circulatory and respiratory systems | CPT/HCPCS: 95811 ==

== ENCOUNTER 2020-03-18 12:51 | Emergency (ER) | payer OTHER ==
[2020-03-18 13:35] LABS: #Basophils 0.1 thou/uL (0.0-0.2); #Eosinphils 0.1 thou/uL (0.0-0.7); #Lymphocytes 1.8 thou/uL (1.20-3.40); #Monocytes 0.6 thou/uL (0.11-0.59); #Neutrophils 10.8 thou/uL (1.40-6.50); %Basophils 0.8 % (0.0-1.0); %Lymphocytes 13.3 % (21.0-51.0); %Monocytes 4.5 % (0.0-10.0); %Neutrophils 80.4 % (42.0-75.0); Hemoglobin 11.9 g/dL (12.0-16.0); Mean Corpuscular HGB CONC 34.9 g/dL (32.0-36.0); Mean Corpuscular Volume 82.8 fL (78.0-98.0); Mean Platelet Volume 7.6 fL (7.4-10.4); Platelet Count 334 thou/uL (130-400); RBC Distribution Width 13.9 % (11.5-14.5); Red Blood Cell (RBC) Count 4.11 mill/uL (4.20-5.40); White Blood Cell (WBC) Count 13.4 thou/uL (4.8-10.8)
--- NOTE | 2020-03-18 14:21 | ULT ---
US Pelvic W Doppler History: Twin with vaginal bleeding Comparison: Pelvic ultrasound 2019 Findings: Twin with 2 separate gestational sacs with the appearance of a dichorionic diamni otic . Both fetuses have the same heart rate of 169 bpm. Small subchronic hemorrhage. Adequate vascular flow left ovary. Right ovary not visualized and was previously removed.. Cervix is closed and measures 3.5 cm in length. The average ultrasound age of twin A is 10 week 3 day and of twin B is 10 week 5 day, similar. Impression: Viable twin with small subchorionic hemorrhage adjacent to both gestational sac s. Both fetus measurements are similar.
[2020-03-18 14:59] LABS: Bacteria/HPF 4+ HPF (None Seen); Bilirubin Negative (Negative); Blood, Urine 3+ (Negative); Clarity Turbid (Clear); Glucose, Urine (Dipstick) Normal (Negative); Ketone, Urine 20 mg/dL (Negative); Leukocyte 75 Leu/uL (Negative); Nitrite Negative (Negative); Protein, Urine (Dipstick) 70 mg/dL (Neg-Trace); RBC/HPF Greater than 50 HPF (0-3); Specific Gravity, Urine 1.029 (1.002-1.036); Urobilinogen Normal mg/dL (Less than 2); WBC/HPF 21-50 HPF (0-3); pH, Urine 5.5 (5.0-9.0)
[2020-03-20 20:59] LABS: Chlamydia by PCR Not Detected (NotDetected); GC by PCR Not Detected (NotDetected)
== END 2020-03-18 15:09 | disposition home or self-care (01) ==
LOC: ERS 12:51
DX: O20.0 Threatened abortion (principal); O30.001 Twin pregnancy, unspecified number of placenta and unspecified number of amniotic sacs, first trimester; O99.351 Diseases of the nervous system complicating pregnancy, first trimester; G47.30 Sleep apnea, unspecified; O99.341 Other mental disorders complicating pregnancy, first trimester; F32.9 Major depressive disorder, single episode, unspecified; Z3A.10 10 weeks gestation of pregnancy
CPT/HCPCS: 36415; 76856; 81003; 81015; 84702; 85025; 86900; 86901; 87480; 87491; 87510; 87591; 87660; 93976

== ENCOUNTER 2020-05-24 11:27 | Day surgery (SDC) | payer OTHER ==
[2020-05-24 12:04] VITALS: BP 127/59; TEMP 99.2; BMI 41.0
[2020-05-24] MEDS ORDERED: hydrALAZINE 20 MG/ML VIAL SLOW IVP PRN (12:18)
[2020-05-24 13:31] LABS: #Monocytes 0.2 thou/uL (0.11-0.59); #Neutrophils 9.9 thou/uL (1.40-6.50); %Basophils 0.3 % (0.0-1.0); %Eosinophils 0.1 % (0.0-10.0); %Monocytes 1.9 % (0.0-10.0); %Neutrophils 88.7 % (42.0-75.0); Hemoglobin 10.5 g/dL (12.0-16.0); Mean Corpuscular HGB CONC 33.8 g/dL (32.0-36.0); Mean Corpuscular Hemoglobin 28.1 pg (27.0-31.0); Mean Corpuscular Volume 83.2 fL (78.0-98.0); Mean Platelet Volume 7.8 fL (7.4-10.4); Platelet Count 312 thou/uL (130-400); RBC Distribution Width 13.3 % (11.5-14.5); Red Blood Cell (RBC) Count 3.75 mill/uL (4.20-5.40); White Blood Cell (WBC) Count 11.2 thou/uL (4.8-10.8)
[2020-05-24 13:50] LABS: Anion Gap 13 mmol/L (10-20); BUN (Urea Nitrogen) 8 mg/dL (7.0-18.7); Calc. Creatinine Clearance 206 mL/min (70-130); Carbon Dioxide 22 mmol/L (22-29); Chloride 104 mmol/L (98-107); Estimated GFR-MDRD Greater than 90; Glucose 106 mg/dL (70-105); Potassium 4.3 mmol/L (3.5-5.1); Sodium 135 mmol/L (136-145)
[2020-05-24 13:54] LABS: Bacteria/HPF None Seen HPF (None Seen); Bilirubin Negative (Negative); Blood, Urine 1+ (Negative); Clarity Turbid (Clear); Glucose, Urine (Dipstick) Normal (Negative); Ketone, Urine 40 mg/dL (Negative); Leukocyte Negative Leu/uL (Negative); Nitrite Negative (Negative); Protein, Urine (Dipstick) 10 mg/dL (Neg-Trace); Specific Gravity, Urine 1.017 (1.002-1.036); Squamous Epithelial 0-3 HPF (0-3); Urobilinogen Normal mg/dL (Less than 2); WBC/HPF 0-3 HPF (0-3)
[2020-05-24 14:03] LABS: Urine Culture Reflex No No
--- NOTE | 2020-05-24 15:08 | ULT ---
Limited Obstetrical Ultrasound INDICATION: Evaluate left ovary for signs of ovarian torsion. History of right oophorectomy in er 2018 for complications related to cysts. Patient is experiencing left lower quadrant abdominal pain.. TECHNIQUE: Grayscale, M-mode Doppler, color Doppler and spectral Doppler images were obtained. Rafael mckinney is focused on the clinical indication. COMPARISON: Prior obstetrical ultrasound dated March 31, 2020 FINDINGS: GESTATION: Number of gestations: Twin. Presentation: Twin A is in vertex presentation. Twin B is in variable position.. heart rate: Cardiac activity of twin A is 158 bpm. Twin B is 140 bpm . Placental location: Twin B placenta is anterior. Twin A placenta is posterior. Previa: No evidence for previa. Cervical length: Not well demonstrated NORRIS: Not recorded. LIMITED SURVEY: No abnormality as visualized. The left ovary measured 3.4 x 3.3 x 2.8 cm. There is normal Doppler flow to the left ovary. No right adnexa is identified. IMPRESSION: 1. Live twin intrauterine gestations. 2. No sonographic evidence to suggest left ovarian torsion.
--- NOTE | 2020-05-25 05:14 | PRG ---
DATE OF SERVICE: 05/24/2020 TIME OF SERVICE: 16:20. PRESENTING COMPLAINT: Left lower quadrant pain at 19 weeks' gestation with twins. HISTORY OF PRESENT ILLNESS: Ms. Winter is a 34-year-old, 3, para 2, previous x2, with twins, who sees Dr. Collins. She was seen in the office today complaining of left lower quadrant pain. She was evaluated by Dr. Collins and found to have unremarkable exam. However, the patient decided to present to the emergency room. She is complaining of left lower quadrant pain. Ultrasound revealed no cervical funneling in the office. GEOPHYSICAL LABORATORY DIRECTOR HISTORY: As noted. O positive, antibody negative. Pap negative. Rubella immune. VDRL nonreactive. Hepatitis B, GC, chlamydia negative. PAST MEDICAL HISTORY: Significant for depressive disorder, Guillain-Macon syndrome, obesity, and PCOS. SURGICAL HISTORY: Significant for right salpingo-oophorectomy, delivery, and cholecystectomy. ALLERGIES: CODEINE AND HYDROCODONE. MEDICATIONS: Include; 1. Baby aspirin. 2. Bupropion. 3. Butalbital. 4. Cyclobenzaprine. 5. Fluoxetine. 6. Folic acid. 7. vitamins. 8. Macrobid. 9. Metoclopramide. PHYSICAL EXAMINATION: GENERAL: White female, crying upon presentation, pain suddenly relieved itself approximately 1 hour after presentation. VITAL SIGNS: Temperature 98.2, pulse 85, respirations 18, blood pressure 118/72. HEENT: Within normal limits. LUNGS: Clear to auscultation bilaterally. HEART: Regular rate and rhythm. ABDOMEN: Soft and nontender. There is no CVA tenderness. No palpable contractions. FHTs 150s x2. PELVIC: Vulva, without lesions. Vagina, without discharge. Cervical exam deferred. EXTREMITIES: No clubbing, cyanosis, or edema. LABORATORY DATA: Revealed normal CBC, normal base met. The patient's cath UA reveals 11 to 20 rbc's with crystals, 40 ketones and otherwise completely clear. Ultrasound reveals a 2 cm ovary on the left with no torsion and a long cervix consistent with the patient's stated ALIRIO. IMPRESSION: Left lower quadrant pain, resolved; probable small kidney stone, passed at 19 weeks' gestation. PLAN: Reassurance. P.o. hydration. Keep scheduled followup with Dr. Collins. ER precautions. Job ID: [id number]
== END 2020-05-24 16:36 | disposition home health service (06) ==
LOC: L&D/OP 11:27
PROVIDERS: ATTEND Obstetrics & Gynecology
DX: O99.891 Other specified diseases and conditions complicating pregnancy (principal); R10.32 Left lower quadrant pain; O30.002 Twin pregnancy, unspecified number of placenta and unspecified number of amniotic sacs, second trimester; O99.342 Other mental disorders complicating pregnancy, second trimester; F32.9 Major depressive disorder, single episode, unspecified; O99.212 Obesity complicating pregnancy, second trimester; E66.9 Obesity, unspecified; Z3A.19 19 weeks gestation of pregnancy; Z88.5 Allergy status to narcotic agent; Z79.82 Long term (current) use of aspirin; Z79.899 Other long term (current) drug therapy
CPT/HCPCS: 36415; 76815; 80048; 81001; 85025

== ENCOUNTER 2020-07-04 10:05 | Emergency (ER) | payer OTHER ==
[~2020-07-04 10:05] MED LIST changes: -Dexamethasone 20 MG/5 ML VIAL ONE; -EPHEDRINE 25 MG/5 ML SYRINGE ONE; +Iopamidol-370 76% 500 ML 1 ML ONE; -Ketorolac Tromethamine 30 MG/ML VIAL ONE; -Lidocaine 1% PF 5 ML VIAL ONE; -Ondansetron PF 4 MG/2 ML Vial ONE; -PROPOFOL 200 MG/20 ML VIAL ONE; -Succinylcholine Chloride 20 MG/ML 10 ml SYRINGE FS ONE
[2020-07-04] MEDS ORDERED: Acetaminophen 500 MG TAB ONE (10:57)
[2020-07-04] MEDS ORDERED: Metoclopramide HCl 10 MG/2 ML VIAL ONE (10:58)
[2020-07-04] MEDS ORDERED: diphenhydrAMINE 50 MG/ML VIAL ONE (10:58)
--- NOTE | 2020-07-04 11:14 | RAD ---
Chest AP view INDICATION: Chest pain COMPARISON: July 22, 2019 FINDINGS: Lungs: Low lung volumes. Cardiac silhouette: Heart size is accentuated by the exam technique. Pulmonary vasculature: Normal Pleural spaces: No pleural effusion or pneumothorax is demonstrated. Upper abdomen: No abnormality seen. Osseous structures: No acute osseous abnormality. Additional findings: None. IMPRESSION: Low lung volumes. No definite acute cardiac pulmonary abnormality.
[2020-07-04 11:16] LABS: #Eosinphils 0.1 thou/uL (0.0-0.7); #Lymphocytes 1.9 thou/uL (1.20-3.40); #Monocytes 0.6 thou/uL (0.11-0.59); %Eosinophils 0.8 % (0.0-10.0); %Lymphocytes 16.4 % (21.0-51.0); %Monocytes 5.5 % (0.0-10.0); %Neutrophils 77.4 % (42.0-75.0); Hemoglobin 9.8 g/dL (12.0-16.0); Mean Corpuscular HGB CONC 34.4 g/dL (32.0-36.0); Mean Corpuscular Hemoglobin 27.3 pg (27.0-31.0); Mean Corpuscular Volume 79.4 fL (78.0-98.0); Mean Platelet Volume 7.3 fL (7.4-10.4); Platelet Count 340 thou/uL (130-400); RBC Distribution Width 13.4 % (11.5-14.5); Red Blood Cell (RBC) Count 3.59 mill/uL (4.20-5.40); White Blood Cell (WBC) Count 11.6 thou/uL (4.8-10.8)
[2020-07-04 11:36] LABS: ALT (SGPT) 15 U/L (8-55); AST (SGOT) 11 U/L (5-34); Albumin 3.4 g/dL (3.5-5.0); Alkaline Phosphatase 96 U/L (40-110); Anion Gap 13 mmol/L (10-20); BUN (Urea Nitrogen) 6 mg/dL (7.0-18.7); Bilirubin, Total 0.3 mg/dL (0.2-1.2); Calc. Creatinine Clearance 0 mL/min (70-130); Carbon Dioxide 23 mmol/L (22-29); Chloride 104 mmol/L (98-107); Estimated GFR-MDRD Greater than 90; Globulin 3.3 g/dL (2.4-3.5); Glucose 101 mg/dL (70-105); Protein, Total 6.7 g/dL (6.0-8.3); Sodium 136 mmol/L (136-145)
--- NOTE | 2020-07-04 13:43 | CT ---
CT Brain WO Con: 07/04/2020 1:15 PM CLINICAL HISTORY: 34-year-old female with headache. IMAGING TECHNIQUE: Multiple CT images were obtained of the brain without IV contrast. COMPARISON: Prior exam dated August 18, [address] of the brain FINDINGS: BRAIN: Evidence of acute infarct: None. Evidence of chronic ischemic change:None. Evidence of intracranial hemorrhage: None. Evidence of brain volume loss:None. Evidence of midline shift: Third ventricle and septum pellucidum are midline. Ventricles: Normal. No hydrocephalus. SKULL: Intact. VISUALIZED PARANASAL SINUSES: Clear. MASTOID AIR CELLS: Clear. EXTRACRANIAL SOFT TISSUES: Normal. IMPRESSION: No acute intracranial abnormality.
--- NOTE | 2020-07-04 14:01 | CT ---
CT ANGIOGRAM CHEST WITH 3D RENDERING: HISTORY: Chest pain, the patient is approximately 24 weeks present with twins. FINDINGS: There is some motion artifact which somewhat lowers the sensitivity of the study, particularly in reg artemio to the smaller mid and peripheral pulmonary artery branches. There is no convincing CT evidence for acute pulmonary embolism. No mediastinal mass or adenopathy. No evidence for pleural effusion o r pericardial effusion. Inspiration is poor with some vascular crowding. Liver is borderline in siz e. Status post cholecystectomy. IMPRESSION: No convincing CT evidence for acute pulmonary embolism. Less than optimal inspiration. Borderline size liver. Partially visualized fetus on the lowest-most scan slice images. POS: [facility]
--- NOTE | 2020-07-07 17:11 | EKG ---
Test Reason : Blood Pressure : / mmHG Vent. Rate : 102 BPM Atrial Rate : 102 BPM P-R Int : 114 ms QRS Dur : 082 ms QT Int : 328 ms P-R-T Axes : 036 006 010 degrees QTc Int : 427 ms Sinus tachycardia Nonspecific ST abnormality Abnormal ECG Confirmed by RADHA HERRERA DO ([id number]), newspaper editor managing RANDAL BECERRA ([id number]) on 07/07/2020 5:10:29 PM Referred By: Confirmed By:RADHA HERRERA DO
== END 2020-07-04 14:47 | disposition home or self-care (01) ==
LOC: ERS 10:05
DX: R07.9 Chest pain, unspecified (principal); R55 Syncope and collapse; R06.00 Dyspnea, unspecified; D64.9 Anemia, unspecified; G47.30 Sleep apnea, unspecified; F41.9 Anxiety disorder, unspecified; F32.9 Major depressive disorder, single episode, unspecified; Z79.899 Other long term (current) drug therapy
CPT/HCPCS: 36415; 70450; 71045; 71275; 80053; 84484; 85025; 85379; 93005; 96365; 96368; J1200; J2765; Q9967

== ENCOUNTER 2020-07-29 17:23 | Inpatient (IN) | payer OTHER ==
[2020-07-29] MEDS ORDERED: NIFEdipine 10 MG CAP PO SCH (18:30)
[2020-07-29] MEDS: Lactated Ringer's 1,000 ML IV SCH ×2 (18:45→19:23)
[2020-07-29 18:48] LABS: Amnisure Test RUPTURE DETECTED (No Rupture)
[2020-07-29 18:49] LABS: Amnisure Internal Control QC ACCEPTABLE (ACCEPTABLE)
[2020-07-29 18:51] VITALS: BP 131/85; TEMP 98.7; BMI 40.3
[2020-07-29] MEDS ORDERED: Promethazine HCl 25 MG/ML VIAL IM PRN (20:25)
[2020-07-29] MEDS ORDERED: Butorphanol Tartrate 1 MG/ML VIAL SLOW IVP PRN (20:25)
[2020-07-29] MEDS ORDERED: hydrALAZINE 20 MG/ML VIAL SLOW IVP PRN (20:25)
[2020-07-29] MEDS ORDERED: Bicitra 30 ML UDCUP PO PRN (20:25)
[2020-07-29] MEDS ORDERED: Famotidine/PF 20 mg/2ml Vial SLOW IVP PRN (20:25)
[2020-07-29] MEDS ORDERED: CEFAZOLIN 2 GM in Premix Bag 1 BAG IVPB SCH (20:30)
[2020-07-29] MEDS ORDERED: Azithromycin 500 MG in Sodium Chloride 0.9% 250 ML 250 ML IVPB SCH (20:30)
[2020-07-29] MEDS ORDERED: Lactated Ringer's 1,000 ML IV SCH (20:30)
--- NOTE | 2020-07-29 20:58 | PDOC.LDHP ---
Labor and Delivery H&P Chief complaint: contractions, loss of fluid HPI: Patient pf Dr Collins patient evaluated by Dr juarez while I was attending to another patient in the OR CC: Possible LOF EGA: 28 weeks 6 days 34 yo with poss LOF. Dr Juarez performed initial eval. This is my medicare contact specialist H&P as I saw her after he did. I evaluated her at 2057. She states 2 prior CS Bedside sono in use. Known twins. Dating criteria: last menstrual period Grav: 3 Para: 2 OB History Details: CS x 2 Current complications: gestational diabetes Current medications: pre- vitamins, other (Levemir 10U AM and 16 in PM) Allergies/Adverse Reactions: Allergies Allergy/AdvReac Type Severity Reaction Status Date / Time codeine Allergy Verified 11/05/19 18:17 hydrocodone Allergy Verified 11/05/19 18:17 - Physical Exam Vital signs reviewed and normal: yes FHT: category 1 (for age) - Assessment Prelabor ROM, GDM on insulin, twins. 28 weeks 6 days. - Plan Plan: admit to L&D, magnesium for neuroprotection, other (ABX for latency; mag for neuroprotection; sono for EFWs (being done now). Follow sugars conservatively. First eval by Dr Juarez. I have sen the patient at bedside.)
[2020-07-29] MEDS ORDERED: Azithromycin 1,000 MG in Sodium Chloride 0.9% 500 ML IVPB SCH (21:00)
[2020-07-29] MEDS: Betamet Acet/Betamet Na Ph 30 MG/5 ML VIAL IM SCH (21:04)
[2020-07-29 21:05] LABS: Hemoglobin 10.4 g/dL (12.0-16.0); Mean Corpuscular HGB CONC 33.3 g/dL (32.0-36.0); Mean Corpuscular Hemoglobin 25.5 pg (27.0-31.0); Mean Corpuscular Volume 76.7 fL (78.0-98.0); Mean Platelet Volume 8.5 fL (7.4-10.4); Platelet Count 339 thou/uL (130-400); RBC Distribution Width 15.1 % (11.5-14.5); Red Blood Cell (RBC) Count 4.07 mill/uL (4.20-5.40); White Blood Cell (WBC) Count 9.6 thou/uL (4.8-10.8)
[2020-07-29 21:19] LABS: Hemoglobin A1c 5.2 % (4.0-6.0)
--- NOTE | 2020-07-29 21:30 | ULT ---
Obstetric sonogram multi gestation limited HISTORY: Spontaneous rupture of membranes. Gestational diabetes. FINDINGS: Intrauterine gestation. Diamniotic dichorionic sacs. Fetus A is in cephalic presentation and on the maternal right. Heart motion at [address] nta is fundal. Amniotic fluid index 27.5. Measurements: Biparietal diameter 32 weeks 1 day Head circumference 32 weeks 4 days Abdominal circumference 31 weeks 4 days Femur length 30 weeks 0 days [place] 99 percentile. Estimated weight 3 lbs. 13 oz. (1729 g) Fetus B is transverse with the head to the maternal right. Heart motion 150 bpm. Grade 0 placenta is anterior. Amniotic fluid index 27.3. Measurements: Biparietal diameter 32 weeks 6 days Head circumference 33 weeks 0 days Abdominal circumference 29 weeks 6 days Femur length 30 weeks 4 days [place] 93 percentile. Estimated weight 3 lbs. 9 oz. (1614 g) IMPRESSION : Twin intrauterine gestation. Each twin large for reported gestational age. Polyhydramnios.
[2020-07-29] MEDS ORDERED: Calcium Gluc 4.6 MEQ/10 ML (100 MG/ML) SLOW IVP PRN (21:38)
[2020-07-29 21:45] LABS: Syphilis Antibody Nonreactive (Nonreactive); Syphilis Antibody Index 0.08 S/CO (<1.00 Non-Reactive)
[2020-07-29] MEDS ORDERED: Magnesium Sulfate 20 GM/WATER 500 ML BAG IVPB SCH (21:45)
[2020-07-29] MEDS: Ondansetron PF 4 MG/2 ML Vial IVP PRN (21:53)
[2020-07-29 21:59] LABS: Anion Gap 18 mmol/L (10-20); BUN (Urea Nitrogen) 12 mg/dL (7.0-18.7); Calc. Creatinine Clearance 219 mL/min (70-130); Carbon Dioxide 18 mmol/L (22-29); Chloride 105 mmol/L (98-107); Glucose 62 mg/dL (70-105); Potassium 4.2 mmol/L (3.5-5.1); Sodium 137 mmol/L (136-145)
[2020-07-29] MEDS: Magnesium Sulfate 20 gm/500 ml 20 GM/500 ML BAG IVPB SCH (22:23)
[2020-07-29 22:31] LABS: HBSAg Index 0.19 S/CO (0-0.99); HIV (1/2) Antibody/Antigen Non-Reactive (NonReactive); HIV 1/2 INDEX 0.17 S/CO (<1.00); Hep B Surf Ag Non-Reactive S/CO (NonReactive)
[2020-07-30] MEDS: Ampicillin 2 GM in Sodium Chloride 0.9% 100 ML IVPB SCH ×4 (00:43→19:50)
[2020-07-30] MEDS: Lactated Ringer's 1,000 ML IV SCH ×3 (00:51→19:49)
[2020-07-30 02:12] LABS: SARS-CoV-2 MS2 Positive; SARS-CoV-2 N Gene Negative; SARS-CoV-2 S Gene Negative; SARS-CoV-2 by NAA Not Detected (NotDetected); SARS-CoV-2 orf1ab Negative
[2020-07-30] MEDS: Magnesium Sulfate 20 gm/500 ml 20 GM/500 ML BAG IVPB SCH ×2 (06:34→16:00)
[2020-07-30] MEDS ORDERED: Insulin Regular 300 UNITS/3 ML VIAL SC PRN (08:09)
[2020-07-30] MEDS ORDERED: Dextrose 5% in Water 1,000 ML IV PRN (08:09)
[2020-07-30] MEDS ORDERED: Dextrose 50% Abboject 50 ML SYRINGE SLOW IVP PRN (08:09)
[2020-07-30] MEDS ORDERED: FLU VACC QS2020-21(6MOS UP)/PF 60 MCG/0.5 ML SYRINGE IM ONE (09:00)
--- NOTE | 2020-07-30 10:14 | PDOC.LDPN ---
Labor & Delivery Progress Note - Subjective Subjective: comfortable, other (a few painful contractions an hour) - Objective Vital signs reviewed and normal: yes General: resting [place] contractions every: one on 20 min NST - Assessment (1) 29 weeks gestation of Code(s): Z3A.29 - 29 WEEKS GESTATION OF Current Visit: Yes Status: Acute (2) Dichorionic diamniotic twin gestation Code(s): O30.049 - TWIN , DICHORIONIC/DIAMNIOTIC, UNSP TRIMESTER Current Visit: Yes Status: Acute (3) contractions Code(s): O47.9 - FALSE LABOR, UNSPECIFIED Current Visit: Yes Status: Acute (4) Gestational diabetes mellitus (GDM) Code(s): O24.419 - GESTATIONAL DIABETES MELLITUS IN , UNSP CONTROL Current Visit: Yes Status: Acute Plan: continue plan of care -: 1. 29 weeks with +Amnisure but ROM not suspected by exam or history (no leaking overnight, dry peripad, only "leaking event" has been on the toilet with void. -continue Ampicillin for latency if ROM later confirmed, Azithromycin done -Magnesium for neuroprotection with irregular ctx (closed SVE last night) -Celestone for steriod benefit 2. GDM recently started on Levimir by [facility] -hold Levimir at this time -sliding scale insulin q 4 hr FSBS during 48hour Celestone benefit trial 3. Joey twins -US completed yesterday - monitoring this AM reviewed at the bedside and is reassuring for 29 weeks tracing (variability and no decels) Discussed continuing to monitor for PPROM and PTL. Discussed plan of care and repeat Amnisure tomorrow if no leaking noted on the pad. VP3 negative.
[2020-07-30] MEDS: Acetaminophen 500 MG TAB PO PRN ×2 (13:35→19:48)
[2020-07-30] MEDS: Betamet Acet/Betamet Na Ph 30 MG/5 ML VIAL IM SCH (20:51)
[2020-07-31] MEDS: Ampicillin 2 GM in Sodium Chloride 0.9% 100 ML IVPB SCH ×5 (01:10→23:44)
[2020-07-31] MEDS: Acetaminophen 500 MG TAB PO PRN ×2 (04:32→21:16)
[2020-07-31] MEDS: Ondansetron PF 4 MG/2 ML Vial IVP PRN (08:43)
--- NOTE | 2020-07-31 09:32 | PDOC.LDPN ---
Labor & Delivery Progress Note - Subjective Subjective: comfortable - Objective Vital signs reviewed and normal: yes General: resting - Assessment (1) 29 weeks gestation of Code(s): Z3A.29 - 29 WEEKS GESTATION OF Current Visit: Yes Status: Acute (2) Dichorionic diamniotic twin gestation Code(s): O30.049 - TWIN , DICHORIONIC/DIAMNIOTIC, UNSP TRIMESTER Current Visit: Yes Status: Acute (3) contractions Code(s): O47.9 - FALSE LABOR, UNSPECIFIED Current Visit: Yes Status: Acute (4) Gestational diabetes mellitus (GDM) Code(s): O24.419 - GESTATIONAL DIABETES MELLITUS IN , UNSP CONTROL Current Visit: Yes Status: Acute -: 1. 29.1 weeks with +Amnisure but ROM not suspected by exam or history no leaking seen since admission. -continue Ampicillin for latency if ROM later confirmed, Azithromycin done -Magnesium for neuroprotection with only rare contractions noted, which are not painful. -Celestone for steriod benefit to be reached this evening. 2. GDM recently started on Levimir by [facility] -hold Levimir at this time -sliding scale insulin q 4 hr FSBS during 48hour Celestone benefit trial 3. Joey twins -US completed - monitoring this AM reviewed at the bedside and is reassuring for 29 weeks tracing (variability and no decels) 4. Approved for RRS w CS -discussed RRS in detail today and asked patient to consider her desires for RRS (sterilization as SE) in the even that she delivers very premature. Pt and spouse to discuss. Discussed continuing to monitor for PPROM and PTL. Discussed plan to DC magnesium this afternoon and to monitor for labor during the day and not stop it right before the late night hours when less staffing is available. If magnesium DC today and no si/sx of PTL, will repeat Amnisure tomorrow AM.
[2020-07-31] MEDS: Magnesium Sulfate 20 gm/500 ml 20 GM/500 ML BAG IVPB SCH (11:35)
[2020-07-31] MEDS: Lactated Ringer's 1,000 ML IV SCH ×2 (23:37→23:38)
[2020-08-01] MEDS: Ampicillin 2 GM in Sodium Chloride 0.9% 100 ML IVPB SCH (04:47)
[2020-08-01] MEDS: Lactated Ringer's 1,000 ML IV SCH (04:47)
[2020-08-01 08:40] LABS: Amnisure Test No Membranes Rupture (No Rupture)
[2020-08-01 08:42] LABS: Amnisure Internal Control QC ACCEPTABLE (ACCEPTABLE)
--- NOTE | 2020-08-01 10:23 | PDOC.LDPN ---
Labor & Delivery Progress Note - Subjective Subjective: comfortable (no contractions ) - Objective Vital signs reviewed and normal: yes General: resting FHT: variability present (variability and age appropriate accels x 2 noted) - Assessment (1) 29 weeks gestation of Code(s): Z3A.29 - 29 WEEKS GESTATION OF Status: Acute (2) Dichorionic diamniotic twin gestation Code(s): O30.049 - TWIN , DICHORIONIC/DIAMNIOTIC, UNSP TRIMESTER Status: Acute (3) contractions Code(s): O47.9 - FALSE LABOR, UNSPECIFIED Status: Acute (4) Gestational diabetes mellitus (GDM) Code(s): O24.419 - GESTATIONAL DIABETES MELLITUS IN , UNSP CONTROL Status: Acute Plan: other -: DI/Di twins 29.2 weeks. Exam today w no pooling, no leaking since admission Thursday night. Amnisure today is negative. Discussed DC home with close monitoring for PTL, si/sx reviewed in detail. To return to hospital for any concern of leaking. Discussed holding Levimir based on relatively normal FSBS sp steroids here on L and D. Will focus on diet control and FU w MFM to discuss use next Thursday.
--- NOTE | 2020-08-01 15:13 | DIS ---
DATE OF ADMISSION: 07/29/2020 DATE OF DISCHARGE: 08/01/2020 ADMISSION DIAGNOSES: 1. Dichorionic diamniotic twins at 28 weeks and 6 days. 2. contractions, possible loss of fluid. DISCHARGE DIAGNOSES: Dichorionic diamniotic at 29 weeks and 2 days. HOSPITAL COURSE: Ms. Winter was admitted on 07/29/2020, at 28 weeks and 6 days with concern for labor and possible rupture of membranes. She was evaluated in the OB triage with a positive AmniSure, but inflamed appearing cervix and concern for possible false positive of the AmniSure. She also had an ultrasound with normal amounts of fluid around both babies. She was admitted to the hospital for steroid benefit and magnesium for neuro protection if she was to progress into labor. During her hospital course, she received both doses of Celestone and approximately 20 hours of magnesium sulfate. During this time, she had no leaking on her chux pad and reported no leaking or gushes of fluid. By hospital day #1, she only had rare mildly painful contractions. During this time, she was placed on sliding scale insulin with Accu-Cheks every 4 hours for concern for gestational diabetes based on MFM evaluation of blood sugars and possible polyhydramnios of the twins. During her hospital stay, she only required insulin correction one time despite two doses of Celestone. By hospital day #4, she had been off magnesium for approximately 18 hours with no contractions noted. The babies were reactive with multiple monitorings with appropriate tracing for gestational age. She had a repeat AmniSure done on hospital day #4 that was negative and an exam with no pooling or concern for rupture of membranes based on physical exam. On hospital day #4, she was discharged home for close monitoring at home. She was given strict instructions to return to the hospital for any concern for leaking, vaginal bleeding, or regular uterine contractions. She reports that she was going to try better to do diet control of her insulin resistance and possible gestational diabetes, and we will hold the Levemir that was prescribed the week prior by Maternal Medicine. This has been communicated to Maternal Medicine who agrees and will be seeing the patient next Thursday in his office for ultrasound and consultation. The patient's questions were answered. She was discharged home at 29 weeks and 2 days in good condition with followup plans made. Job ID: [id number]
== END 2020-08-01 09:55 | disposition home health service (06) | DRG 833 ==
LOC: L&D/OP 17:23 → L&D 20:25
PROVIDERS: ADMIT Obstetrics & Gynecology; ATTEND Obstetrics & Gynecology
DX: O60.03 Preterm labor without delivery, third trimester (principal); Z3A.28 28 weeks gestation of pregnancy; Z88.5 Allergy status to narcotic agent; O30.043 Twin pregnancy, dichorionic/diamniotic, third trimester; O24.419 Gestational diabetes mellitus in pregnancy, unspecified control; O40.3XX0 Polyhydramnios, third trimester, not applicable or unspecified; Z20.828 Contact with and (suspected) exposure to other viral communicable diseases
CPT/HCPCS: 36415; 36416; 76810; 80048; 81003; 83036; 84112; 85027; 86780; 86850; 86900; 86901; 87081; 87340; 87389; 87480; 87510; 87635; 87660; J0290; J0456; J0690; J0702; J1815; J2405; J3475; J3490; J7030; U0003

== ENCOUNTER 2020-08-06 20:04 | Inpatient (IN) | payer OTHER ==
[2020-08-06 20:59] VITALS: BMI 42.7
[2020-08-06] MEDS ORDERED: hydrALAZINE 20 MG/ML VIAL SLOW IVP PRN ×2 (21:11→22:12)
[2020-08-06] MEDS ORDERED: Lactated Ringer's 1,000 ML IV SCH (21:30)
--- NOTE | 2020-08-06 22:08 | PDOC.BPN ---
- Brief Progress Note SONO RESULTS: SEE dictated H&P CX Length by sono is 2.3cm per sono tech. I have discussed FFN with the patient, and we will send. FHTs x 2 by sono with grossly normal fluid per tech. CTXs on toco are about every 3 min or so. I discussed expectant management for now. If CTXs persist, may need repeat CS.
[2020-08-06] MEDS ORDERED: Calcium Gluc 4.6 MEQ/10 ML (100 MG/ML) SLOW IVP PRN (22:12)
[2020-08-06] MEDS ORDERED: Ondansetron PF 4 MG/2 ML Vial IVP PRN (22:12)
[2020-08-06] MEDS ORDERED: Promethazine HCl 25 MG/ML VIAL IM PRN (22:12)
[2020-08-06] MEDS ORDERED: Magnesium Sulfate 20 GM/WATER 500 ML BAG IVPB SCH (22:15)
--- NOTE | 2020-08-06 22:15 | ULT ---
EXAM: OB ultrasound COMPARISON: None HISTORY: Twin . Evaluate presentation and evaluate for heart tones TECHNIQUE: Multiplanar grayscale and color Doppler images were obtained in a transabdominal and trans vaginal ultrasound. FINDINGS: There is a twin intrauterine . Twin A is in vertex presentation with its placenta on the maternal right. Heart rate of twin A is 139 beats per minutes. The single largest pocket of amniotic fluid adjacent to twin A is 9.6 cm. Twin B is in a transverse lie with the placenta along the maternal left. Heart rate of twin B is 137 bpm. The single largest pocket of amniotic fluid adjacent to twin B is 7.4 cm. Overall NORRIS is 29 cm. The cervix measures 2.3 cm in length. IMPRESSION: Live twin intrauterine as above.
--- NOTE | 2020-08-06 22:15 | PDOC.BPN ---
- Brief Progress Note I have notified Dr Collins of pt status via TT. I will keep the patient overnight for OBS due to CTX. Await FFN. Start Mag for neuroprotection
[2020-08-06] MEDS ORDERED: Magnesium Sulfate 20 gm/500 ml 20 GM/500 ML BAG IVPB SCH (22:30)
--- NOTE | 2020-08-06 22:32 | HP ---
TIME OF EVALUATION: Roughly 2115 hours, it is now 2126hours. LOCATION: Triage A. Patient of Dr. Collins. Gestational age is 30 weeks and 0 days. CHIEF COMPLAINT: Possible contractions with twins. HISTORY OF PRESENT ILLNESS: In brief, this patient is a 34-year-old 3, para 2 with known twins, who has had 2 previous sections, who was last seen on 07/29/2020 for possible leakage of fluid. At that time, she was first evaluated by Dr. Hyman and that evaluation initially had a positive Amnisure, but the exam was not convincing for rupture, but she was kept for observation. She was given steroids at that admission as well. She remained stable and on 08/01, she underwent a repeat Amnisure and at that point, it was negative and she had no further leakage. She comes in now with possible increasing contractions since today, but denies leakage of fluid, recent vaginal bleeding, trauma, or recent intercourse. She does have a history of gestational diabetes and she was previously on Levemir 10 units in the morning and 16 units in the evening, but this was held at her last discharge despite given steroids for lung maturity. REVIEW OF SYSTEMS: GENERAL: No fever. No sick contacts. CARDIOVASCULAR: No chest pain. RESPIRATORY: No shortness of breath. ABDOMEN: No constipation or diarrhea. EXTREMITIES: No lower extremity swelling or unusual pain. OB HISTORY: She is a G3, P2 with 2 previous C-sections. 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 She does have gestational diabetes and is now diet controlled. ALLERGIES: NOT REPORTED. PAST SURGICAL HISTORY: Includes a unilateral salpingo-oophorectomy and C- section x2. SOCIAL HISTORY: Negative for alcohol, tobacco, or drug use. PHYSICAL EXAMINATION: VITAL SIGNS: Her blood pressure was 114/70s, pulse is in the 80s, and respirations are 18 and unlabored. GENERAL: She is uncomfortable, but does not look in any acute distress. She does not appear to be grossly and actively laboring. ABDOMEN: Obviously gravid and consistent with twins. PELVIC: No gross evidence of leakage or vaginal bleeding. I did not perform a cervical exam because I have ordered a transvaginal ultrasound to evaluate this. MONITORS: heart rate x2 is noted, but it is difficult to keep on the monitor because of movement x2. INTERVENTIONS ORDERED: I have ordered a transvaginal ultrasound and we will get an fFN if needed. Because of her history of gestational diabetes, I have ordered an Accu-Chek and I have also ordered 1 L LR just for hydration. Last ultrasound on 07/29 showed baby's growth to be normal x2 at 99th percentile, A was cephalic and B was transverse back then. A was 1729 g on July 29 and B was 1614 g, again, both 99 percentile. ASSESSMENT: This is a G3, P2, at 30 weeks and 0 days, known twins, who has already received steroids and is back for possible contractions after being observed for about 3 days earlier this month (07/29 to 08/01). Last Amnisure was negative. She has no recent intercourse history. PLAN: 1. I have discussed the cervical length, fFN and algorithm per protocol with her and she understands. 2. I did discuss with her that if she is showing signs of active labor, we would reinstitute magnesium sulfate for neuro protection and we would consider a repeat section as she has had prior x2. 3. I have not yet notified the NICU team/Neonatology because the evaluation is still ongoing. 4. Accu-Chek for gestational diabetes, now diet controlled. 5. Once again, she is a prior x2 and if there is evidence of active labor, we may at the least keep her for observation; at the most, proceed with a repeat if indicated. Job ID: [id number] [facility]
[2020-08-06 22:55] LABS: #Basophils 0.1 thou/uL (0.0-0.2); #Eosinphils 0.1 thou/uL (0.0-0.7); #Lymphocytes 2.2 thou/uL (1.20-3.40); #Monocytes 0.7 thou/uL (0.11-0.59); #Neutrophils 7.6 thou/uL (1.40-6.50); %Basophils 0.7 % (0.0-1.0); %Eosinophils 0.9 % (0.0-10.0); %Lymphocytes 20.5 % (21.0-51.0); %Monocytes 6.2 % (0.0-10.0); %Neutrophils 71.8 % (42.0-75.0); Hemoglobin 10.2 g/dL (12.0-16.0); Mean Corpuscular HGB CONC 33.2 g/dL (32.0-36.0); Mean Corpuscular Hemoglobin 25.3 pg (27.0-31.0); Mean Corpuscular Volume 76.2 fL (78.0-98.0); Mean Platelet Volume 8.5 fL (7.4-10.4); Platelet Count 322 thou/uL (130-400); RBC Distribution Width 14.8 % (11.5-14.5); Red Blood Cell (RBC) Count 4.03 mill/uL (4.20-5.40); White Blood Cell (WBC) Count 10.6 thou/uL (4.8-10.8)
[2020-08-06] MEDS: Lactated Ringer's 1,000 ML IV SCH (23:01)
[2020-08-06 23:10] LABS: ALT (SGPT) 27 U/L (8-55); AST (SGOT) 24 U/L (5-34); Albumin 3.5 g/dL (3.5-5.0); Alkaline Phosphatase 131 U/L (40-110); Anion Gap 16 mmol/L (10-20); BUN (Urea Nitrogen) 8 mg/dL (7.0-18.7); Bilirubin, Total 0.8 mg/dL (0.2-1.2); Calc. Creatinine Clearance 244 mL/min (70-130); Calcium 8.8 mg/dL (7.8-10.44); Carbon Dioxide 20 mmol/L (22-29); Chloride 103 mmol/L (98-107); Globulin 3.5 g/dL (2.4-3.5); Glucose 69 mg/dL (70-105); Potassium 4.3 mmol/L (3.5-5.1); Sodium 135 mmol/L (136-145)
[2020-08-06 23:11] LABS: FFN Internal QC Analyzer PASS (PASS); FFN Internal QC Cassette PASS (PASS); Fetal Fibronectin POSITIVE (Negative)
[2020-08-06 23:28] LABS: HBSAg Index 0.27 S/CO (0-0.99); HIV (1/2) Antibody/Antigen Non-Reactive (NonReactive); HIV 1/2 INDEX 0.09 S/CO (<1.00); Hep B Surf Ag Non-Reactive S/CO (NonReactive); Syphilis Antibody Nonreactive (Nonreactive); Syphilis Antibody Index 0.06 S/CO (<1.00 Non-Reactive)
--- NOTE | 2020-08-06 23:51 | PDOC.BPN ---
- Brief Progress Note FFN POSITIVE noted. Mag in use for neuroprotection. Inhouse obs for now.
[2020-08-07 05:19] LABS: SARS-CoV-2 MS2 Positive; SARS-CoV-2 N Gene Negative; SARS-CoV-2 S Gene Negative; SARS-CoV-2 by NAA Not Detected (NotDetected); SARS-CoV-2 orf1ab Negative
--- NOTE | 2020-08-07 08:18 | PDOC.LDPN ---
Labor & Delivery Progress Note - Subjective Subjective: painful contractions - Objective Vital signs reviewed and normal: yes General: breathing through contractions Dilation: 3 Effacement: 50% Station: -2 FHT: category 1 [place] contractions every: 6 min - Assessment (1) 30 weeks gestation of Code(s): Z3A.30 - 30 WEEKS GESTATION OF Current Visit: Yes Status: Acute (2) labor Code(s): O60.00 - LABOR WITHOUT DELIVERY, UNSPECIFIED TRIMESTER Current Visit: Yes Status: Acute (3) Anxiety Code(s): F41.9 - ANXIETY DISORDER, UNSPECIFIED Current Visit: No Status: Acute (4) Depression Code(s): F32.9 - MAJOR DEPRESSIVE DISORDER, SINGLE EPISODE, UNSPECIFIED Current Visit: No Status: Acute (5) Dichorionic diamniotic twin gestation Code(s): O30.049 - TWIN , DICHORIONIC/DIAMNIOTIC, UNSP TRIMESTER Current Visit: No Status: Acute (6) Gestational diabetes mellitus (GDM) Code(s): O24.419 - GESTATIONAL DIABETES MELLITUS IN , UNSP CONTROL Current Visit: No Status: Acute -: Pt presents @ 30 weeks in early labor, sp Celestone benefit last week. 3cm, regular ctx and bloody show. Plan for RCS w RRS today. Patient and husand have spent the last week considering RRsalpingectomy and understand the implications of sterilization as a SE. Pt and consent/request to RRS w RCS.
[2020-08-07] MEDS ORDERED: Famotidine/PF 20 mg/2ml Vial SLOW IVP PRN (08:20)
[2020-08-07] MEDS ORDERED: Bicitra 30 ML UDCUP PO PRN (08:20)
[2020-08-07] MEDS ORDERED: CEFAZOLIN 2 GM in Premix Bag 1 BAG IVPB SCH (08:30)
[2020-08-07] MEDS ORDERED: Azithromycin 500 MG in Sodium Chloride 0.9% 250 ML 250 ML IVPB SCH (08:30)
[2020-08-07] MEDS ORDERED: PHENYLEPHRINE-NS 100 MCG/ML 10 ML SYRINGE ONE ×2 (09:39→11:30)
[2020-08-07] MEDS ORDERED: Ketorolac Tromethamine 30 MG/ML VIAL ONE ×2 (09:39→13:08)
[2020-08-07] MEDS ORDERED: Ondansetron PF 4 MG/2 ML Vial ONE ×2 (09:39→11:30)
[2020-08-07] MEDS ORDERED: ePHEDrine 50 MG/ML VIAL ONE ×2 (09:39→11:30)
[2020-08-07] MEDS ORDERED: Morphine PF 10 MG/10 ML VIAL ONE (11:29)
[2020-08-07] MEDS ORDERED: Oxytocin 10 UNITS/ML VIAL ONE ×2 (11:30→12:52)
[2020-08-07] MEDS ORDERED: Sodium Chloride 0.9% 10 ML ONE ×2 (11:30→12:31)
[2020-08-07] MEDS ORDERED: Methylergonovine 0.2 MG/ML VIAL ONE (12:24)
[2020-08-07] MEDS ORDERED: Fentanyl 100 MCG/2 ML VIAL ONE ×2 (12:29→12:37)
[2020-08-07] MEDS ORDERED: Promethazine HCl 25 MG/ML VIAL ONE (12:31)
[2020-08-07] MEDS ORDERED: Meperidine HCl/PF 25 MG/ML VIAL SLOW IVP PRN (13:25)
[2020-08-07] MEDS ORDERED: Promethazine HCl 25 MG/ML VIAL IM PRN (13:25)
[2020-08-07] MEDS ORDERED: Ondansetron PF 4 MG/2 ML Vial IVP PRN ×2 (13:25→15:19)
[2020-08-07] MEDS ORDERED: Naloxone HCl 0.4 mg/ml Vial IV PRN (13:25)
[2020-08-07] MEDS ORDERED: HYDROmorphone 2 MG/ML VIAL SLOW IVP PRN (13:25)
[2020-08-07] MEDS ORDERED: Promethazine HCl 25 MG SUPP PR PRN (13:25)
[2020-08-07] MEDS ORDERED: Naloxone HCl 0.4 mg/ml Vial IVP PRN ×2 (13:25)
[2020-08-07] MEDS ORDERED: Ondansetron HCl/PF 4 MG/2 ML Vial IVP PRN (13:25)
[2020-08-07] MEDS ORDERED: Communication Order-Pharmacy FS SCH (13:30)
[2020-08-07] MEDS ORDERED: Ketorolac Tromethamine 30 MG/ML VIAL IVP SCH (13:30)
[2020-08-07] MEDS: Lactated Ringer's 1,000 ML IV SCH ×2 (14:14→15:39)
--- NOTE | 2020-08-07 14:42 | OP ---
DATE OF PROCEDURE: 08/07/2020 PREOPERATIVE DIAGNOSES: 1. A 34-year-old, G3, P-2-0-0-2, at 30 weeks. 2. Dichorionic diamniotic twins and labor. 3. Gestational diabetes and obesity. 4. Family history of cancer, desires risk reducing salpingectomy. 5. Previous history of right salpingo-oophorectomy. OPTIONS TRADER: Gillian Sultana CNM, [employer]S [employer]. ANESTHESIA: Spinal. ESTIMATED BLOOD LOSS: 900 mL. COMPLICATIONS: None. OPERATIVE FINDINGS: 1. Low-transverse hysterotomy without extension. 2. Normal-appearing left fallopian tube and left ovary. 3. Partial fallopian tube on the right side, absence of right ovary. 4. Uterine atony with uterine fundus firm after administration of Pitocin by manual massage and Methergine IM x1. 5. Polyhydramnios for both babies. 6. Vigorous male infant, Apgars and weight pending at the time of dictation, delivered from vertex presentation as baby A. 7. Vigorous male , Apgars and weight pending at the time of dictation, delivered from breech presentation as baby B. 8. Placenta was delivered. 9. Surgical site hemostatic. PROCEDURE PERFORMED: Repeat low-transverse section with risk reducing salpingectomy. PROCEDURE IN DETAIL: The patient was taken back to the OR with IV fluids running. Once she was in the OR, spinal anesthesia was obtained and the patient was placed in dorsal supine position with a left lateral tilt. English catheter was placed using sterile technique. Ancef and azithromycin were administered through IV for prophylactic antibiotics. The abdomen was prepped and draped in normal fashion for section. Surgeons were gowned and gloved. The anesthesia was tested and found to be adequate. A Pfannenstiel skin incision was made with a scalpel. The skin incision was carried down through the subcutaneous tissue to the fascia. Once the fascia was reached, it was incised in the midline and extended superolaterally with curved Peres scissors. Wanda clamps were placed at the superior border of the fascia, which was sharply and bluntly dissected off the rectus abdominis muscle. This was repeated from the inferior border of the fascia down towards the pubic symphysis. Once adequate space was made for delivery of the babies, the rectus muscles were bluntly entered in the midline, the peritoneum was then tented off the abdomen and entered with Metzenbaum scissors. The peritoneum was then stretched. An Manuel O retractor was placed into the peritoneal cavity for retraction, visualization, and protection of the wound. A bladder flap was created using Metzenbaum and the bladder was dissected away from the planned hysterotomy site. A low-transverse hysterotomy was made with a scalpel and was extended using the Fowler maneuver. Amniotomy was performed. Copious amounts of clear fluid noted from baby A. Baby A was delivered from vertex presentation without difficulty through the incision. The nose and mouth were suctioned. The cord was clamped and cut, and the was handed off to the Nursery and Rico Team available for delivery. Cord blood was collected and the cord was left clamped. Next, fundal pressure was applied. The infant's feet were grasped through the membrane. Rupture of membranes was performed again with copious amounts of clear fluid noted. The baby B was delivered easily from breech presentation with gentle traction at the feet and then the hips. The upper extremities and head delivered spontaneously. After baby B was delivered, the nose and mouth were suctioned, the cord was doubly clamped and cut, and he was handed off to special care nurses in attendance. Cord blood was collected. The placentas were delivered and sent for pathologic review. Uterus was exteriorized, massaged to firm, and cleared of clot and debris. There were no extensions at the hysterotomy. The uterine fundus was noted to be atonic and a dose of Methergine was ordered. The hysterotomy was closed using Monocryl suture in a running locked fashion. After the hysterotomy was closed, it was inspected and no areas of bleeding were noted. Attention was turned to the salpingectomy portion of the procedure. The patient and her at this time verbalized once again that they requested and consented to salpingectomy for risk reduction with a known side effect of sterilization. The patient had a normal-appearing fallopian tube and ovary on the left side. On the right side, there was absence of the right ovary and concern for possible tubal segment near the cornua of the uterus. Beginning on the patient's left side, the left fallopian tube was grasped with a Misa clamp and elevated. The mesosalpinx was cauterized and dissected with Bovie cauterization. Small vessels were tied with free tie, plain gut suture. Free tie was placed between the ovary and fimbriated end on the patient's left side. The fimbria and tube segment were then excised entirely and sent for pathologic review. After salpingectomy was performed on the patient's left side and hemostasis was noted, attention was turned to the right side. Further, with history of a right salpingo-oophorectomy prior, there was a partially appearing tubal portion of anatomy noted at the patient's right. It was grasped with Misa clamps, dissected away from the uterus and transected. The tube segments on both sides were inspected with no bleeding noted. The uterus was returned to the abdominal cavity. The hysterotomy was copiously irrigated and suctioned dry, and the tube segments were inspected again with the uterus in situ. No areas of bleeding were noted. Uterus was firm at this time. The Manuel O retractor was removed from the abdominal cavity. The rectus muscle and fascia were inspected with no areas of bleeding noted. The rectus fascia was reapproximated from corner to corner in a running suture of PDS. The subcutaneous layer was irrigated and dried. Any small areas of bleeding were controlled with Bovie cauterization. The subcutaneous layer was reapproximated with plain gut suture. The skin was closed with 4-0 Monocryl and a BECKIE negative pressure prophylactic wound dressing was placed over the incision. The uterine fundus massaged firm at the end of the case. The patient tolerated the procedure well. There were no complications. Job ID: [id number]
[2020-08-07] MEDS ORDERED: Adacel (T-DAP) 0.5 ML SYRINGE IM ONE (15:19)
[2020-08-07] MEDS ORDERED: hydrALAZINE 20 MG/ML VIAL SLOW IVP PRN (15:19)
[2020-08-07] MEDS ORDERED: Lanolin Ointment 7 GM TUBE TOP PRN (15:19)
[2020-08-07] MEDS ORDERED: Acetaminophen 325 MG TAB PO PRN (15:19)
[2020-08-07] MEDS ORDERED: diphenhydrAMINE 25 MG CAP PO PRN (15:19)
[2020-08-07] MEDS ORDERED: Methylergonovine 0.2 MG/ML VIAL IM SCH (15:45)
[2020-08-07] MEDS: Simethicone Chewable 80 MG TAB PO PRN (16:29)
[2020-08-07] MEDS: diphenhydrAMINE 50 MG/ML VIAL IVP PRN ×2 (16:29→23:30)
[2020-08-07] MEDS: Ketorolac Tromethamine 30 MG/ML VIAL IVP PRN ×2 (17:58→23:30)
[2020-08-07 18:08] LABS: Hemoglobin 8.5 g/dL (12.0-16.0); Platelet Count 268 thou/uL (130-400)
[2020-08-07] MEDS: Ferrous Sulfate 325 MG TAB PO SCH (23:37)
[2020-08-07] MEDS: Docusate Calcium (SURFAK) 240 MG CAP PO SCH (23:37)
[2020-08-08] MEDS: Ketorolac Tromethamine 30 MG/ML VIAL IVP PRN (06:02)
[2020-08-08] MEDS ORDERED: Sodium Chloride 0.9% 10 ML ONE ×3 (06:25→20:32)
[2020-08-08 06:41] LABS: Hemoglobin 6.8 g/dL (12.0-16.0); Mean Corpuscular HGB CONC 32.6 g/dL (32.0-36.0); Mean Corpuscular Hemoglobin 25.3 pg (27.0-31.0); Mean Corpuscular Volume 77.7 fL (78.0-98.0); Mean Platelet Volume 7.9 fL (7.4-10.4); Platelet Count 225 thou/uL (130-400); RBC Distribution Width 14.7 % (11.5-14.5); Red Blood Cell (RBC) Count 2.68 mill/uL (4.20-5.40); White Blood Cell (WBC) Count 11.1 thou/uL (4.8-10.8)
--- NOTE | 2020-08-08 08:05 | PDOC.PP ---
Post Progress Note Post Day #: 1 Subjective: minimal pain, itching, tolerating diet, feeling light headed this AM when ambulating/sitting on the toilet, no SOB or CP, feels fine at rest PO intake tolerated: yes Flatus: yes Ambulation: yes Vital Signs (12 hours) Temp Pulse Resp BP 08/08/20 04:00 98.0 F 85 18 110/60 08/08/20 00:30 98.1 F 90 18 108/57 L Weight Weight 249 lb - Physical Examination General: NAD Respiratory: non-labored breathing Abdominal: no distention Fundus firm & at: below umb Psychiatric: A&Ox3, normal affect Result Diagrams: 08/08/20 06:17 08/06/20 22:39 Additional Labs: Post Labs Hep Bs Antigen Non-Reactive S/CO (NonReactive) 08/06/20 22:39 Blood Type O POSITIVE 08/06/20 22:39 (1) 30 weeks gestation of Code(s): Z3A.30 - 30 WEEKS GESTATION OF Status: Acute (2) labor Code(s): O60.00 - LABOR WITHOUT DELIVERY, UNSPECIFIED TRIMESTER Status: Acute (3) Anxiety Code(s): F41.9 - ANXIETY DISORDER, UNSPECIFIED Status: Acute (4) Depression Code(s): F32.9 - MAJOR DEPRESSIVE DISORDER, SINGLE EPISODE, UNSPECIFIED Status: Acute (5) Dichorionic diamniotic twin gestation Code(s): O30.049 - TWIN , DICHORIONIC/DIAMNIOTIC, UNSP TRIMESTER Status: Acute (6) Gestational diabetes mellitus (GDM) Code(s): O24.419 - GESTATIONAL DIABETES MELLITUS IN , UNSP CONTROL Status: Acute (7) Symptomatic anemia Code(s): D64.9 - ANEMIA, UNSPECIFIED Status: Acute (8) Uterine atony Code(s): O62.2 - OTHER UTERINE INERTIA Status: Acute (9) Anemia affecting Code(s): O99.019 - ANEMIA COMPLICATING , UNSPECIFIED TRIMESTER Status: Acute - Assessment/Plan POD1 doing well sp RLTCS w salpingectomy for PTL di/di twins @ 30 weeks, PPH/atony noted in OR w symptomatic anemia this AM (had anemia of as well). Risk and benefits of transfusion of PRBCs reviewed in detail. 1U PRBC ordered this aM. Continue PP care.
[2020-08-08] MEDS: diphenhydrAMINE 50 MG/ML VIAL IVP PRN (08:41)
[2020-08-08] MEDS: Ferrous Sulfate 325 MG TAB PO SCH (08:44)
[2020-08-08] MEDS: Docusate Calcium (SURFAK) 240 MG CAP PO SCH (08:44)
[2020-08-08] MEDS: Prenatal Vitamin 1 TAB PO SCH (08:44)
[2020-08-08] MEDS: Simethicone Chewable 80 MG TAB PO PRN ×3 (10:12→21:53)
[2020-08-08] MEDS: traMADol HCl 50 MG TAB PO PRN ×3 (11:42→21:53)
[2020-08-08] MEDS ORDERED: Bupropion 150 MG XL TAB PO SCH (13:00)
[2020-08-08] MEDS: Ibuprofen 800 MG TAB PO SCH ×2 (13:45→21:53)
[2020-08-08 16:35] LABS: Hemoglobin 7.3 g/dL (12.0-16.0); Platelet Count 264 thou/uL (130-400)
[2020-08-08] MEDS: FLUoxetine HCl 20 MG CAP PO SCH (21:53)
[2020-08-09] MEDS: Ferrous Sulfate 325 MG TAB PO SCH ×3 (01:01→21:32)
[2020-08-09] MEDS: Docusate Calcium (SURFAK) 240 MG CAP PO SCH ×3 (01:01→23:15)
[2020-08-09] MEDS: Ibuprofen 800 MG TAB PO SCH ×3 (05:35→21:31)
[2020-08-09] MEDS: Simethicone Chewable 80 MG TAB PO PRN ×3 (05:35→21:42)
[2020-08-09] MEDS: traMADol HCl 50 MG TAB PO PRN ×3 (05:36→18:50)
--- NOTE | 2020-08-09 07:53 | PDOC.PP ---
Post Progress Note Post Day #: 2 Subjective: Doing well. Pain under control. Symptoms of anemia much improved. Would likely want to go home later today. PO intake tolerated: yes Flatus: yes Ambulation: yes Vital Signs (12 hours) Temp Pulse Resp BP Pulse Ox 08/09/20 05:20 98.1 F 83 16 115/58 L 08/09/20 00:30 89 16 120/57 L 08/08/20 20:00 98.1 F 84 12 104/51 L 98 Weight Weight 249 lb - Physical Examination General: NAD Respiratory: non-labored breathing Abdominal: lochia (normal), no distention, appropriately TTP Fundus firm & at: below umbilicus Skin: CS incision dry & intact Neurological: no gross focal deficits Psychiatric: A&Ox3, normal affect Result Diagrams: 08/08/20 16:17 08/06/20 22:39 Additional Labs: Post Labs Hep Bs Antigen Non-Reactive S/CO (NonReactive) 08/06/20 22:39 Blood Type O POSITIVE 08/06/20 22:39 (1) delivery delivered Code(s): O82 - ENCOUNTER FOR DELIVERY WITHOUT INDICATION Status: Acute - Assessment/Plan Patient doing well, much improved after 2 units PRBCs. Will let nurse know if she would like to go home later today. D/c today or tomorrow.
[2020-08-09 07:56] LABS: Hemoglobin 7.8 g/dL (12.0-16.0); Mean Corpuscular HGB CONC 32.5 g/dL (32.0-36.0); Mean Corpuscular Hemoglobin 25.9 pg (27.0-31.0); Mean Corpuscular Volume 79.6 fL (78.0-98.0); Platelet Count 258 thou/uL (130-400); RBC Distribution Width 15.1 % (11.5-14.5); Red Blood Cell (RBC) Count 3.01 mill/uL (4.20-5.40); White Blood Cell (WBC) Count 9.9 thou/uL (4.8-10.8)
[2020-08-09] MEDS: Prenatal Vitamin 1 TAB PO SCH (08:07)
[2020-08-09] MEDS: Bupropion 150 MG XL TAB PO SCH (09:57)
[2020-08-09] MEDS: FLUoxetine HCl 20 MG CAP PO SCH (22:00)
[2020-08-10] MEDS: traMADol HCl 50 MG TAB PO PRN ×3 (00:35→08:38)
[2020-08-10] MEDS: Ibuprofen 800 MG TAB PO SCH (05:02)
[2020-08-10 06:19] LABS: Hemoglobin 8.5 g/dL (12.0-16.0); Mean Corpuscular HGB CONC 31.7 g/dL (32.0-36.0); Mean Corpuscular Hemoglobin 25.6 pg (27.0-31.0); Mean Corpuscular Volume 80.7 fL (78.0-98.0); Mean Platelet Volume 7.7 fL (7.4-10.4); Platelet Count 310 thou/uL (130-400); RBC Distribution Width 15.7 % (11.5-14.5); Red Blood Cell (RBC) Count 3.34 mill/uL (4.20-5.40)
--- NOTE | 2020-08-10 06:36 | PDOC.PP ---
Post Progress Note Post Day #: POD3 Subjective: Feeling better, no dizziness. Ambulating w/o difficulty. PO intake tolerated: yes Flatus: yes Ambulation: yes Vital Signs (12 hours) Temp Pulse Resp BP Pulse Ox 08/09/20 21:15 98.6 F 88 18 108/67 98 Weight Weight 112.945 kg - Physical Examination General: NAD Respiratory: non-labored breathing Abdominal: no distention Skin: CS incision dry & intact Neurological: no gross focal deficits Psychiatric: normal affect Result Diagrams: 08/10/20 06:08 08/06/20 22:39 Additional Labs: Post Labs Hep Bs Antigen Non-Reactive S/CO (NonReactive) 08/06/20 22:39 Blood Type O POSITIVE 08/06/20 22:39 - Assessment/Plan Doing well, Hgb improved to 8.5 this AM. Will DC home Has appt at [facility] on Thursday Precautions given.
[2020-08-10] MEDS: Ferrous Sulfate 325 MG TAB PO SCH (08:34)
[2020-08-10] MEDS: Bupropion 150 MG XL TAB PO SCH (08:34)
[2020-08-10] MEDS: Docusate Calcium (SURFAK) 240 MG CAP PO SCH (08:34)
[2020-08-10] MEDS: Prenatal Vitamin 1 TAB PO SCH (08:34)
[2020-08-10 08:40] VITALS: BP 127/66; TEMP 97.7
--- NOTE | 2020-08-13 15:21 | ULT ---
EXAM: OB ultrasound COMPARISON: None HISTORY: Twin . Evaluate presentation and evaluate for heart tones TECHNIQUE: Multiplanar grayscale and color Doppler images were obtained in a transabdominal and trans vaginal ultrasound. FINDINGS: There is a twin intrauterine . Twin A is in vertex presentation with its placenta on the maternal right. Heart rate of twin A is 139 beats per minutes. The single largest pocket of amniotic fluid adjacent to twin A is 9.6 cm. Twin B is in a transverse lie with the placenta along the maternal left. Heart rate of twin B is 137 bpm. The single largest pocket of amniotic fluid adjacent to twin B is 7.4 cm. Overall NORRIS is 29 cm. The cervix measures 2.3 cm in length. IMPRESSION: Live twin intrauterine as above. Transcribed Date/Time: 08/13/2020 3:20 PM
== END 2020-08-10 11:59 | disposition home or self-care (01) | DRG 787 ==
LOC: L&D/OP 20:04 → L&D 22:12 → 3SW 08-07 16:07
PROVIDERS: ADMIT Obstetrics & Gynecology; ATTEND Obstetrics & Gynecology
PROC: 10D00Z1 Extraction of Products of Conception, Low, Open Approach (ICD-10-PCS; principal; 2020-08-07)
PROC: 30233N1 Transfusion of Nonautologous Red Blood Cells into Peripheral Vein, Percutaneous Approach (ICD-10-PCS; 2020-08-08)
DX: O60.14X2 Preterm labor third trimester with preterm delivery third trimester, fetus 2 (principal); O72.1 Other immediate postpartum hemorrhage; Z20.828 Contact with and (suspected) exposure to other viral communicable diseases; O30.043 Twin pregnancy, dichorionic/diamniotic, third trimester; O24.420 Gestational diabetes mellitus in childbirth, diet controlled; F41.9 Anxiety disorder, unspecified; F32.9 Major depressive disorder, single episode, unspecified; O99.344 Other mental disorders complicating childbirth; O40.3XX2 Polyhydramnios, third trimester, fetus 2; O32.1XX1 Maternal care for breech presentation, fetus 1; O99.214 Obesity complicating childbirth; E66.9 Obesity, unspecified; O90.81 Anemia of the puerperium; D64.9 Anemia, unspecified; Z3A.30 30 weeks gestation of pregnancy; Z37.2 Twins, both liveborn
CPT/HCPCS: 36415; 36416; 36430; 51702; 76810; 80053; 82731; 85014; 85018; 85025; 85027; 85049; 86780; 86850; 86900; 86901; 87340; 87389; 87635; 88302; 88307; 99285; J1200; J1885; J2210; J2270; J2405; J2550; J3010; J3475; J3490; P9016; U0003

== ENCOUNTER 2020-09-16 20:35 | Emergency (ER) | payer OTHER ==
[2020-09-16] MEDS ORDERED: Fentanyl 100 MCG/2 ML VIAL ONE (20:52)
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
[2020-09-16 21:20] LABS: #Eosinphils 0.1 thou/uL (0.0-0.7); #Monocytes 0.7 thou/uL (0.11-0.59); #Neutrophils 11.9 thou/uL (1.40-6.50); %Basophils 0.1 % (0.0-1.0); %Eosinophils 0.7 % (0.0-10.0); %Lymphocytes 13.4 % (21.0-51.0); %Monocytes 4.6 % (0.0-10.0); %Neutrophils 81.2 % (42.0-75.0); Hemoglobin 10.5 g/dL (12.0-16.0); Mean Corpuscular HGB CONC 32.4 g/dL (32.0-36.0); Mean Corpuscular Hemoglobin 25.7 pg (27.0-31.0); Mean Corpuscular Volume 79.3 fL (78.0-98.0); Platelet Count 214 thou/uL (130-400); RBC Distribution Width 16.1 % (11.5-14.5); Red Blood Cell (RBC) Count 4.09 mill/uL (4.20-5.40); White Blood Cell (WBC) Count 14.7 thou/uL (4.8-10.8)
[2020-09-16 21:40] LABS: ALT (SGPT) 24 U/L (8-55); AST (SGOT) 23 U/L (5-34); Albumin 3.5 g/dL (3.5-5.0); Alkaline Phosphatase 128 U/L (40-110); Anion Gap 13 mmol/L (10-20); BUN (Urea Nitrogen) 16 mg/dL (7.0-18.7); Bilirubin, Total 0.4 mg/dL (0.2-1.2); Calc. Creatinine Clearance 0 mL/min (70-130); Calcium 8.4 mg/dL (7.8-10.44); Carbon Dioxide 21 mmol/L (22-29); Chloride 108 mmol/L (98-107); Globulin 2.9 g/dL (2.4-3.5); Glucose 81 mg/dL (70-105); Lipase 19 U/L (8-78); Potassium 3.6 mmol/L (3.5-5.1); Protein, Total 6.4 g/dL (6.0-8.3); Sodium 138 mmol/L (136-145)
--- NOTE | 2020-09-22 22:28 | EKG ---
Test Reason : Blood Pressure : / mmHG Vent. Rate : 086 BPM Atrial Rate : 086 BPM P-R Int : 140 ms QRS Dur : 084 ms QT Int : 358 ms P-R-T Axes : 058 026 040 degrees QTc Int : 428 ms Normal sinus rhythm Low voltage QRS Nonspecific ST and T wave abnormality Abnormal ECG Confirmed by RADHA HERRERA DO ([id number]), editor school photograph RANDAL BECERRA ([id number]) on 09/22/2020 10:28:25 PM Referred By: Confirmed By:RADHA HERRERA DO
== END 2020-09-17 00:04 | disposition home or self-care (01) ==
LOC: ERS 20:35
DX: S10.91XA Abrasion of unspecified part of neck, initial encounter (principal); M25.532 Pain in left wrist; D64.9 Anemia, unspecified; E55.9 Vitamin D deficiency, unspecified; G47.30 Sleep apnea, unspecified; E28.2 Polycystic ovarian syndrome; Z79.899 Other long term (current) drug therapy; V89.2XXA Person injured in unspecified motor-vehicle accident, traffic, initial encounter
CPT/HCPCS: 36415; 70450; 71260; 72125; 74177; 80053; 83605; 83690; 85025; 93005; 96374; G0390; J3010; Q9967

== ENCOUNTER 2020-11-22 09:40 | Outpatient (CLI) | payer BC | END 2020-11-22 09:41 | disposition home or self-care (01) | LOC: BICULT 09:40 | PROVIDERS: ATTEND Surgery | DX: R22.31 Localized swelling, mass and lump, right upper limb (principal); N63.10 Unspecified lump in the right breast, unspecified quadrant | CPT/HCPCS: 76999 ==

== ENCOUNTER 2021-05-02 21:48 | Emergency (ER) | payer BC ==
[2021-05-03] MEDS ORDERED: Lidocaine Viscous Sol 2% 15 ml UD Cup ONE (00:57)
[2021-05-03] MEDS ORDERED: Dexamethasone 10 MG/ML VIAL ONE (00:57)
== END 2021-05-03 01:18 | disposition home or self-care (01) ==
LOC: ERS 21:48
DX: J02.8 Acute pharyngitis due to other specified organisms (principal); R13.10 Dysphagia, unspecified; J35.1 Hypertrophy of tonsils; E28.2 Polycystic ovarian syndrome; G47.30 Sleep apnea, unspecified; D64.9 Anemia, unspecified; R13.11 Dysphagia, oral phase
CPT/HCPCS: 70491; 86308; 87070; 96372; 99282; J1100; Q9967

== ENCOUNTER 2021-05-03 11:31 | Outpatient (CLI) | payer BC ==
[2021-05-03] MEDS ORDERED: Iopamidol 370 76% 100 ML VIAL ONE (15:13)
== END 2021-05-03 11:32 | disposition home or self-care (01) ==
LOC: CT 11:31
PROVIDERS: ATTEND Physician Assistant
DX: J03.90 Acute tonsillitis, unspecified (principal); R13.11 Dysphagia, oral phase; R59.0 Localized enlarged lymph nodes
CPT/HCPCS: 70491

== ENCOUNTER 2021-06-18 06:29 | Day surgery (SDC) | payer BC ==
[2021-06-17 14:01] VITALS: BMI 39.4
[2021-06-18 07:53] LABS: BHCG - Serum Negative (NEGATIVE); Pregs Control Background? CLEAR/WHITE (CLR/WHITE); Pregs Control Bar Appear? YES (CONTROL BAR)
[2021-06-18] MEDS ORDERED: Midazolam HCl 2 mg/2 ml Vial ONE (08:42)
[2021-06-18] MEDS ORDERED: Fentanyl 100 MCG/2 ML VIAL ONE ×2 (08:42→09:49)
[2021-06-18] MEDS ORDERED: PHENYLEPHRINE-NS 100 MCG/ML 10 ML SYRINGE ONE (08:50)
[2021-06-18] MEDS ORDERED: Lidocaine 1% PF 5 ML VIAL ONE (08:50)
[2021-06-18] MEDS ORDERED: Dexamethasone 20 MG/5 ML VIAL ONE (08:50)
[2021-06-18] MEDS ORDERED: Ondansetron PF 4 MG/2 ML Vial ONE (08:50)
[2021-06-18] MEDS ORDERED: PROPOFOL 200 MG/20 ML VIAL ONE (08:50)
[2021-06-18] MEDS ORDERED: Meperidine HCl/PF 25 MG/ML VIAL ONE (09:38)
[2021-06-18] MEDS ORDERED: Promethazine HCl 25 MG/ML VIAL ONE (09:38)
[2021-06-18] MEDS ORDERED: Ketorolac Tromethamine 30 MG/ML VIAL ONE (09:58)
== END 2021-06-18 11:50 | disposition home or self-care (01) ==
LOC: SDC 06:29
PROVIDERS: ATTEND Student in an Organized Health Care Education/Training Program
PROC: 0CTPXZZ Resection of Tonsils, External Approach (ICD-10-PCS; principal; 2021-06-18)
PROC: 0CTQXZZ Resection of Adenoids, External Approach (ICD-10-PCS; principal; 2021-06-18)
DX: J03.91 Acute recurrent tonsillitis, unspecified (principal); J35.03 Chronic tonsillitis and adenoiditis; G47.30 Sleep apnea, unspecified; K21.9 Gastro-esophageal reflux disease without esophagitis; E66.01 Morbid (severe) obesity due to excess calories; Z68.39 Body mass index [BMI] 39.0-39.9, adult; Z86.16 Personal history of COVID-19; Z87.891 Personal history of nicotine dependence; Z79.899 Other long term (current) drug therapy; Z88.5 Allergy status to narcotic agent
CPT/HCPCS: 84703; 85014; 88304; J1100; J1885; J2175; J2250; J2405; J2550; J2704; J3010

== ENCOUNTER 2021-06-24 20:28 | Observation (INO) | payer BC ==
[2021-06-24] MEDS ORDERED: Ketorolac Tromethamine 30 MG/ML VIAL ONE (20:51)
[2021-06-24] MEDS ORDERED: Dexamethasone 10 MG/ML VIAL ONE (20:51)
[2021-06-24] MEDS ORDERED: Morphine 4 MG/ML VIAL ONE (20:51)
[2021-06-24 21:27] LABS: #Eosinphils 0.2 thou/uL (0.0-0.7); #Monocytes 0.6 thou/uL (0.11-0.59); #Neutrophils 4.9 thou/uL (1.40-6.50); %Basophils 0.3 % (0.0-1.0); %Eosinophils 2.1 % (0.0-10.0); %Lymphocytes 34.8 % (21.0-51.0); %Monocytes 6.8 % (0.0-10.0); Hemoglobin 12.6 g/dL (12.0-16.0); Mean Corpuscular HGB CONC 34.9 g/dL (32.0-36.0); Mean Corpuscular Hemoglobin 30.8 pg (27.0-31.0); Mean Corpuscular Volume 88.3 fL (78.0-98.0); Mean Platelet Volume 6.5 fL (7.4-10.4); Platelet Count 378 thou/uL (130-400); Red Blood Cell (RBC) Count 4.09 mill/uL (4.20-5.40); White Blood Cell (WBC) Count 8.7 thou/uL (4.8-10.8)
[2021-06-24 21:48] LABS: ALT (SGPT) 37 U/L (8-55); AST (SGOT) 15 U/L (5-34); Alkaline Phosphatase 88 U/L (40-110); Anion Gap 11 mmol/L (10-20); BUN (Urea Nitrogen) 12 mg/dL (7.0-18.7); Bilirubin, Total 0.8 mg/dL (0.2-1.2); Calc. Creatinine Clearance 0 mL/min (70-130); Calcium 9.6 mg/dL (7.8-10.44); Carbon Dioxide 30 mmol/L (22-29); Chloride 99 mmol/L (98-107); Globulin 3.4 g/dL (2.4-3.5); Glucose 126 mg/dL (70-105); Protein, Total 7.4 g/dL (6.0-8.3); Sodium 137 mmol/L (136-145)
[2021-06-24 22:02] LABS: Potassium 2.8 mmol/L (3.5-5.1)
[2021-06-24] MEDS ORDERED: Potassium Bicarbonate/Cit Ac 20 MEQ TAB PO SCH (22:15)
[2021-06-24] MEDS ORDERED: D5 NS w/ 40 mEq KCl 1,000 ML IV SCH (23:00)
[2021-06-25] MEDS ORDERED: Acetaminophen 325 MG TAB PO PRN (01:00)
[2021-06-25] MEDS ORDERED: Ondansetron PF 4 MG/2 ML Vial IVP PRN (01:00)
[2021-06-25] MEDS ORDERED: traMADol HCl 50 MG TAB PO PRN (01:02)
[2021-06-25] MEDS ORDERED: Electrolyte Replacement Protocol 1 EACH FS SCH (01:15)
[2021-06-25] MEDS: Ketorolac Tromethamine 30 MG/ML VIAL IVP PRN ×2 (02:22→08:19)
[2021-06-25] MEDS: D5 NS w/ 40 mEq KCl 1,000 ML IV SCH ×3 (04:00→08:39)
[2021-06-25 06:37] VITALS: BMI 39.6
[2021-06-25 06:55] LABS: #Monocytes 0.2 thou/uL (0.11-0.59); #Neutrophils 4.9 thou/uL (1.40-6.50); %Eosinophils 0.1 % (0.0-10.0); %Lymphocytes 16.4 % (21.0-51.0); %Monocytes 3.7 % (0.0-10.0); %Neutrophils 79.8 % (42.0-75.0); Hemoglobin 12.1 g/dL (12.0-16.0); Mean Corpuscular HGB CONC 34.4 g/dL (32.0-36.0); Mean Corpuscular Hemoglobin 30.7 pg (27.0-31.0); Mean Corpuscular Volume 89.4 fL (78.0-98.0); Mean Platelet Volume 6.5 fL (7.4-10.4); Platelet Count 322 thou/uL (130-400); RBC Distribution Width 11.7 % (11.5-14.5); Red Blood Cell (RBC) Count 3.94 mill/uL (4.20-5.40); White Blood Cell (WBC) Count 6.1 thou/uL (4.8-10.8)
[2021-06-25 07:22] LABS: Anion Gap 8 mmol/L (10-20); BUN (Urea Nitrogen) 7 mg/dL (7.0-18.7); Calc. Creatinine Clearance 207 mL/min (70-130); Calcium 8.4 mg/dL (7.8-10.44); Carbon Dioxide 24 mmol/L (22-29); Chloride 108 mmol/L (98-107); Glucose 153 mg/dL (70-105); Potassium 4.3 mmol/L (3.5-5.1); Sodium 136 mmol/L (136-145)
[2021-06-25 08:26] LABS: Magnesium 1.8 mg/dL (1.6-2.6)
[2021-06-25 08:34] LABS: Phosphorus 1.1 mg/dL (2.3-4.7)
[2021-06-25] MEDS ORDERED: Magnesium 2 GM/50 ML 2 GM in Premix Bag 1 BAG IVPB SCH (10:00)
[2021-06-25] MEDS: PHOS-NAK 1 PKT PACK PO SCH ×2 (10:51→13:26)
[2021-06-25] MEDS ORDERED: FLUoxetine HCl 20 MG/5 ML UDCUP PO SCH ×2 (11:30→21:00)
[2021-06-25 11:42] LABS: SARS-CoV-2 PCR by NAA Not Detected (NotDetected)
[2021-06-25] MEDS: Morphine 4 MG/ML VIAL SLOW IVP PRN ×2 (13:15→20:07)
[2021-06-25] MEDS: traMADol HCl 50 MG TAB PO SCH ×2 (13:58→17:36)
[2021-06-25] MEDS ORDERED: Potassium Phosphate 30 MMOL in Sodium Chloride 0.9% 250 ML 250 ML IVPB SCH (14:00)
[2021-06-25] MEDS ORDERED: Sodium Chloride 0.9% 1,000 ML IV SCH (16:15)
[2021-06-25] MEDS ORDERED: Non-Formulary Item 1 EACH (Fluoxetine Hcl [Fluoxetine Hcl] 60 MG Tablet) PO SCH (21:00)
[2021-06-25] MEDS ORDERED: Bupropion 150 MG XL TAB PO SCH (21:00)
[2021-06-25] MEDS ORDERED: BUPROPION HCL 150 MG PO SCH (21:00)
[2021-06-26] MEDS: traMADol HCl 50 MG TAB PO SCH ×3 (00:01→11:52)
[2021-06-26] MEDS: Ketorolac Tromethamine 30 MG/ML VIAL IVP PRN ×2 (02:54→09:24)
[2021-06-26] MEDS: Bupropion 150 MG XL TAB PO SCH ×2 (05:35→11:52)
[2021-06-26 07:06] LABS: #Eosinphils 0.1 thou/uL (0.0-0.7); #Lymphocytes 2.5 thou/uL (1.20-3.40); #Monocytes 0.3 thou/uL (0.11-0.59); #Neutrophils 2.9 thou/uL (1.40-6.50); %Basophils 0.3 % (0.0-1.0); %Eosinophils 2.1 % (0.0-10.0); %Lymphocytes 42.6 % (21.0-51.0); %Monocytes 5.4 % (0.0-10.0); %Neutrophils 49.7 % (42.0-75.0); Hemoglobin 12.3 g/dL (12.0-16.0); Mean Corpuscular HGB CONC 33.5 g/dL (32.0-36.0); Mean Corpuscular Hemoglobin 30.1 pg (27.0-31.0); Mean Corpuscular Volume 89.9 fL (78.0-98.0); Mean Platelet Volume 6.6 fL (7.4-10.4); Platelet Count 299 thou/uL (130-400); RBC Distribution Width 11.8 % (11.5-14.5); Red Blood Cell (RBC) Count 4.08 mill/uL (4.20-5.40); White Blood Cell (WBC) Count 5.8 thou/uL (4.8-10.8)
[2021-06-26 07:55] LABS: Anion Gap 10 mmol/L (10-20); BUN (Urea Nitrogen) 4 mg/dL (7.0-18.7); Calc. Creatinine Clearance 204 mL/min (70-130); Calcium 8.8 mg/dL (7.8-10.44); Carbon Dioxide 25 mmol/L (22-29); Chloride 106 mmol/L (98-107); Glucose 86 mg/dL (70-105); Magnesium 1.8 mg/dL (1.6-2.6); Potassium 3.9 mmol/L (3.5-5.1); Sodium 137 mmol/L (136-145)
[2021-06-26] MEDS ORDERED: PHOS-NAK 1 PKT PACK PO SCH (09:00)
[2021-06-26] MEDS ORDERED: Non-Formulary Item 1 EACH (Omeprazole [Omeprazole] 20 MG Tablet.Dr) PO SCH (09:00)
[2021-06-26] MEDS ORDERED: Potassium Phosphate 15 MMOL in Sodium Chloride 0.9% 250 ML 250 ML IVPB SCH (10:00)
[2021-06-26 13:53] VITALS: BP 122/82; TEMP 98
[2021-06-26] MEDS ORDERED: FLUoxetine HCl 20 MG CAP PO SCH (21:00)
== END 2021-06-26 13:55 | disposition home or self-care (01) ==
LOC: ERS 20:28 → T4-A 23:07
PROVIDERS: ADMIT Student in an Organized Health Care Education/Training Program; ATTEND Internal Medicine
DX: R53.1 Weakness (principal); R13.10 Dysphagia, unspecified; E86.0 Dehydration; E87.6 Hypokalemia; E83.42 Hypomagnesemia; F41.9 Anxiety disorder, unspecified; K21.9 Gastro-esophageal reflux disease without esophagitis; E83.39 Other disorders of phosphorus metabolism; E66.9 Obesity, unspecified; Z68.39 Body mass index [BMI] 39.0-39.9, adult; Z79.899 Other long term (current) drug therapy; Z88.5 Allergy status to narcotic agent; Z90.5 Acquired absence of kidney; Z98.890 Other specified postprocedural states; Z20.822 Contact with and (suspected) exposure to COVID-19
CPT/HCPCS: 36415; 80048; 80053; 83735; 84100; 85025; 96365; 96366; 96367; 96374; 96375; 96376; G0378; J1100; J1885; J2270; J3475; J3480; J7050; U0003; U0005

== ENCOUNTER 2024-02-29 16:00 | Outpatient (CLI) | payer BC | END 2024-02-29 16:01 | disposition home or self-care (01) | LOC: SLEEPLAB 16:00 | PROVIDERS: ATTEND Surgery | DX: G47.33 Obstructive sleep apnea (adult) (pediatric) (principal); K21.9 Gastro-esophageal reflux disease without esophagitis; E66.9 Obesity, unspecified; G47.00 Insomnia, unspecified; R06.83 Snoring; G47.10 Hypersomnia, unspecified; Z68.42 Body mass index [BMI] 45.0-49.9, adult | CPT/HCPCS: 95800 ==